=== PATIENT | male | born 1945 | race Caucasian/White ===

== ENCOUNTER 2019-11-24 08:52 | Inpatient (IN) | payer MEDICARE, BC, SELFPAY ==
[2019-11-24] VITALS (24 sets, daily range): BP systolic 77–123; BP diastolic 34–86; PULSE 60–85; RESP 18–32; TEMP 37.2–37.9; O2SAT 72–100; BMI 33.0
--- NOTE | 2019-11-24 08:54 | ED_ITS ---
HPI - Weakness General: Chief complaint: Weakness Stated complaint: WEAKNESS Time Seen by Provider: 11/24/19 08:54 History of Present Illness: HPI Narrative: 74 yo resents emergency room on transfer from [facility] beds at the [facility]. Dr. Holt had agreed to accept him. On arrival here he is hypotensive and lethargic. When I talked to him he states he began to have a cough productive cough about 9 days ago with no fever he subsequently stated pressure over this and that was about 5 days ago was started on Zithromax and guaifenesin. He did have one ER visit after that and then another ER visit overnight at [facility] which he was transferred here. Patient reports he has been Kovic tested and was negative. 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 He had not received much for fluids and he was hypotensive when he arrived here. Patient is somewhat lethargic difficult to get history from. MD Complaint: generalized weakness Onset (ago): day(s) (9) Duration: constant Location: generalized Migration: none Severity: severe Relieving factors: none Exacerbating factors: none Context: history of similar Associated symptoms: Reports no associated symptoms and nausea; Denies chest pain, chills, melena, dysuria, fever(s) or vomiting Review of Systems Const: Denies: fever(s), chills, body aches, change in appetite, fatigue or malaise ENMT: Denies: throat pain, ear or mastoid pain, nasal discharge or nasal congestion Card: Denies: chest pain, edema, dyspnea on exertion or orthopnea Resp: Reports: dyspnea and non-productive cough; Denies: productive cough GI: Reports: abdominal pain and nausea; Denies: vomiting, hematemesis, coffee ground emesis, diarrhea, constipation, bloating, hematochezia or melena : Denies: flank pain, dysuria, urinary frequency or urinary urgency Skin/Breast: Denies: rash or pruritus PFSH ED PFSH: Medical History CAD (coronary artery disease) Chronic anticoagulation Chronic kidney disease Congestive heart failure COPD (chronic obstructive pulmonary disease) Glaucoma Vasculitis Surgical History History of heart artery stent Social History Smoking and tobacco status: never smoked Alcohol intake: never Substance/Drug Use: never Marital status: Physical Exam Const: COMMON NORMALS: no acute distress GENERAL APPEARANCE: cooperative and comfortable ORIENTATION/CONSCIOUSNESS: Yes awake Eye: COMMON NORMALS: Equal, round and reactive pupils present, EOMs intact bilaterally, conjunctivae normal and no scleral icterus CONJUNCTIVA: Yes conjunctivae normal PUPIL: Yes Equal, round and reactive pupils present Neck/C-Spine: COMMON NORMALS: full ROM, no lymphadenopathy, supple and no JVD Lymph: LYMPHATIC: no lymphadenopathy noted and no lymphedema noted Resp: COMMON NORMALS: normal respiratory effort, No retractions and No use of accessory muscles AUSCULTATION: diminished lung sounds Cardio: COMMON NORMALS: no JVD, regular rate, regular rhythm and No murmurs present (Cardio) RATE: regular rate RHYTHM: regular rhythm GI: COMMON NORMALS: Soft to palpation and No hepatosplenomegaly present AUSCULTATION: Yes normoactive bowel sounds PALPATION: Yes Soft to palpation, No Tenderness to palpation present (GI), No Guarding due to palpation present (GI) and Yes No hepatosplenomegaly present Extremity: COMMON NORMALS: normal to inspection, capillary refill normal, no clubbing, cyanosis or edema, no calf tenderness and no pedal edema Skin: COMMON NORMALS: no rashes or lesions noted GENERAL SKIN EXAM: no rashes or lesions noted Course Vital Signs: Vital signs: Vital Signs Temperature 98.9 F 11/24/19 08:58 Pulse Rate 72 11/24/19 14:22 Respiratory Rate 20 H 11/24/19 14:22 Blood Pressure 93/68 11/24/19 14:22 Pulse Oximetry 91 11/24/19 14:22 MDM - Weakness 2 Lab Data: Labs: Lab Results 11/24/19 11/24/19 11/24/19 Range/Units 09:08 09:08 09:08 WBC 4.7 (4.0-10.0) 10^3/ uL RBC 3.52 L (4.1-5.3) 10^6/u L Hgb 10.8 L (11.7-16.6) g/dL Hct 32.5 L (42.0-52.0) % MCV 92.3 (80-94) fL MCH 30.7 (28.0-34.0) pg MCHC 33.2 (30.0-36.0) g/dL RDW 15.5 H (12.1-15.1) % Plt Count 50 L (130-400) 10^3/c mm MPV 13.0 H (7.4-10.4) fL Neut % (Auto) 90.6 % Lymph % (Auto) 3.2 % Swisher % (Auto) 5.1 % Eos % (Auto) 0.0 % Baso % (Auto) 0.2 % Neut # (Auto) 4.3 (1.8-7.7) 10^3/u L Lymph # (Auto) 0.2 L (0.8-4.8) 10^3/u L Swisher # (Auto) 0.2 (0.2-0.9) 10^3/u L Eos # (Auto) 0.0 (0.0-0.8) 10^3/u L Baso # (Auto) 0.0 (0.0-0.1) 10^3/u L Nucleated RBC % (a uto) 0 % Nucleated RBCs # 0.0 /100WBC Fibrinogen (184-529) mg/dL D-Dimer (0-0.59) ug/mIFE U Specimen Type Sample Site ABG pH (7.35-7.45) ABG pCO2 (35-45) mmHg ABG pO2 (80.0-100.0) mmH g ABG HCO3 (22-26) mmol/L ABG O2 Saturation ABG Base Excess (-2.0-2.0) mmol/ L Toro Test A-a O2 Gradient (5-10) mmHg Hematocrit (42-52) % Hgb O2 Saturation (95-100) % Carboxyhemoglobin (0.4-20.1) %THgb Methemoglobin (0.4-1.5) % Total Hemoglobin (14-18) g/dL Ionized Calcium (1.1-1.4) mmol/L O2 Delivery Device O2 Liters/Min % FiO2 % Church Business Administrator ID Sodium 123 L (136-145) mmol/L Potassium 4.0 (3.5-5.1) mmol/L Chloride 87 L (98-107) mmol/L Carbon Dioxide 20 L (22-29) mmol/L Anion Gap 20.0 H (5-19) BUN 66 H (8-23) mg/dL Creatinine 5.0 H (0.7-1.2) mg/dL Glucose 168 H (65-115) mg/dL Estimat Average Gl ucose Hemoglobin A1c (4.0-6.0) % Calculated Osmolal ity 259 L (285-295) mOsm/k g Lactate (0.5-2.2) mmol/L Calcium 8.1 L (8.5-10.5) mg/dL Iron (59-158) ug/dL TIBC mcg/dl % Saturation (20-50) % Unsat Iron Binding (112-347) ug/dL Ferritin (30-400) ng/mL Total Bilirubin 0.5 (0.15-1.2) mg/dL AST 179 H (0-40) U/L ALT 83 H (0-41) U/L Alkaline Phosphata se 47 (40-130) IU/L Troponin T Baselin e 95 H (0-15) ng/L Troponin T 120 [address] [place] (0-15) ng/L Delta Troponin T (0-10) ABS# C-Reactive Protein (0.0-4.9) mg/L NT-Pro-B Natriuret Pep (0-450) pg/mL Total Protein 5.3 L (6.6-8.7) g/dL Albumin 2.9 L (3.5-5.2) g/dL Globulin 2.4 (1.3-4.6) g/dL Prostate Specific Ag (0-4) ng/mL Procalcitonin (0-0.5) ng/mL Urine Color (Yellow) Urine Appearance (CLEAR) Urine pH (5-7) Ur Specific Gravit y (1.005-1.030) Urine Protein (Negative) Urine Glucose (UA) (Normal) Urine Ketones (Negative) Urine Blood (Negative) Urine Nitrate (Negative) Urine Bilirubin (NEGATIVE) Urine Urobilinogen (Negative) mg/dL Ur Leukocyte Earlene ase (Negative) Urine RBC (0-2) /hpf Urine WBC (0-5) /hpf Ur Squamous Epith Cells (0-5) Amorphous Sediment Urine Bacteria (NONE) Serum Ketones (Negative) 11/24/19 11/24/19 11/24/19 Range/Units 09:08 09:08 09:08 WBC (4.0-10.0) 10^3/ uL RBC (4.1-5.3) 10^6/u L Hgb (11.7-16.6) g/dL Hct (42.0-52.0) % MCV (80-94) fL MCH (28.0-34.0) pg MCHC (30.0-36.0) g/dL RDW (12.1-15.1) % Plt Count (130-400) 10^3/c mm MPV (7.4-10.4) fL Neut % (Auto) % Lymph % (Auto) % Swisher % (Auto) % Eos % (Auto) % Baso % (Auto) % Neut # (Auto) (1.8-7.7) 10^3/u L Lymph # (Auto) (0.8-4.8) 10^3/u L Swisher # (Auto) (0.2-0.9) 10^3/u L Eos # (Auto) (0.0-0.8) 10^3/u L Baso # (Auto) (0.0-0.1) 10^3/u L Nucleated RBC % (a uto) % Nucleated RBCs # /100WBC Fibrinogen 378 (184-529) mg/dL D-Dimer (0-0.59) ug/mIFE U Specimen Type Sample Site ABG pH (7.35-7.45) ABG pCO2 (35-45) mmHg ABG pO2 (80.0-100.0) mmH g ABG HCO3 (22-26) mmol/L ABG O2 Saturation ABG Base Excess (-2.0-2.0) mmol/ L Toro Test A-a O2 Gradient (5-10) mmHg Hematocrit (42-52) % Hgb O2 Saturation (95-100) % Carboxyhemoglobin (0.4-20.1) %THgb Methemoglobin (0.4-1.5) % Total Hemoglobin (14-18) g/dL Ionized Calcium (1.1-1.4) mmol/L O2 Delivery Device O2 Liters/Min % FiO2 % Church Business Administrator ID Sodium (136-145) mmol/L Potassium (3.5-5.1) mmol/L Chloride (98-107) mmol/L Carbon Dioxide (22-29) mmol/L Anion Gap (5-19) BUN (8-23) mg/dL Creatinine (0.7-1.2) mg/dL Glucose (65-115) mg/dL Estimat Average Gl ucose Hemoglobin A1c (4.0-6.0) % Calculated Osmolal ity (285-295) mOsm/k g Lactate 2.5 H (0.5-2.2) mmol/L Calcium (8.5-10.5) mg/dL Iron (59-158) ug/dL TIBC mcg/dl % Saturation (20-50) % Unsat Iron Binding (112-347) ug/dL Ferritin (30-400) ng/mL Total Bilirubin (0.15-1.2) mg/dL AST (0-40) U/L ALT (0-41) U/L Alkaline Phosphata se (40-130) IU/L Troponin T Baselin e (0-15) ng/L Troponin T 120 [address] [place] (0-15) ng/L Delta Troponin T (0-10) ABS# C-Reactive Protein (0.0-4.9) mg/L NT-Pro-B Natriuret Pep (0-450) pg/mL Total Protein (6.6-8.7) g/dL Albumin (3.5-5.2) g/dL Globulin (1.3-4.6) g/dL Prostate Specific Ag (0-4) ng/mL Procalcitonin (0-0.5) ng/mL Urine Color (Yellow) Urine Appearance (CLEAR) Urine pH (5-7) Ur Specific Gravit y (1.005-1.030) Urine Protein (Negative) Urine Glucose (UA) (Normal) Urine Ketones (Negative) Urine Blood (Negative) Urine Nitrate (Negative) Urine Bilirubin (NEGATIVE) Urine Urobilinogen (Negative) mg/dL Ur Leukocyte Earlene ase (Negative) Urine RBC (0-2) /hpf Urine WBC (0-5) /hpf Ur Squamous Epith Cells (0-5) Amorphous Sediment Urine Bacteria (NONE) Serum Ketones Negative (Negative) 11/24/19 11/24/19 11/24/19 Range/Units 09:08 09:08 09:08 WBC (4.0-10.0) 10^3/ uL RBC (4.1-5.3) 10^6/u L Hgb (11.7-16.6) g/dL Hct (42.0-52.0) % MCV (80-94) fL MCH (28.0-34.0) pg MCHC (30.0-36.0) g/dL RDW (12.1-15.1) % Plt Count (130-400) 10^3/c mm MPV (7.4-10.4) fL Neut % (Auto) % Lymph % (Auto) % Swisher % (Auto) % Eos % (Auto) % Baso % (Auto) % Neut # (Auto) (1.8-7.7) 10^3/u L Lymph # (Auto) (0.8-4.8) 10^3/u L Swisher # (Auto) (0.2-0.9) 10^3/u L Eos # (Auto) (0.0-0.8) 10^3/u L Baso # (Auto) (0.0-0.1) 10^3/u L Nucleated RBC % (a uto) % Nucleated RBCs # /100WBC Fibrinogen (184-529) mg/dL D-Dimer 3.94 H (0-0.59) ug/mIFE U Specimen Type Sample Site ABG pH (7.35-7.45) ABG pCO2 (35-45) mmHg ABG pO2 (80.0-100.0) mmH g ABG HCO3 (22-26) mmol/L ABG O2 Saturation ABG Base Excess (-2.0-2.0) mmol/ L Toro Test A-a O2 Gradient (5-10) mmHg Hematocrit (42-52) % Hgb O2 Saturation (95-100) % Carboxyhemoglobin (0.4-20.1) %THgb Methemoglobin (0.4-1.5) % Total Hemoglobin (14-18) g/dL Ionized Calcium (1.1-1.4) mmol/L O2 Delivery Device O2 Liters/Min % FiO2 % Church Business Administrator ID Sodium (136-145) mmol/L Potassium (3.5-5.1) mmol/L Chloride (98-107) mmol/L Carbon Dioxide (22-29) mmol/L Anion Gap (5-19) BUN (8-23) mg/dL Creatinine (0.7-1.2) mg/dL Glucose (65-115) mg/dL Estimat Average Gl ucose Hemoglobin A1c (4.0-6.0) % Calculated Osmolal ity (285-295) mOsm/k g Lactate (0.5-2.2) mmol/L Calcium (8.5-10.5) mg/dL Iron 39 L (59-158) ug/dL TIBC 207 mcg/dl % Saturation 18.8 L (20-50) % Unsat Iron Binding 168 (112-347) ug/dL Ferritin > [address]304 H (30-400) ng/mL Total Bilirubin (0.15-1.2) mg/dL AST (0-40) U/L ALT (0-41) U/L Alkaline Phosphata se (40-130) IU/L Troponin T Baselin e (0-15) ng/L Troponin T 120 Min [place] (0-15) ng/L Delta Troponin T (0-10) ABS# C-Reactive Protein 311.4 H (0.0-4.9) mg/L NT-Pro-B Natriuret Pep (0-450) pg/mL Total Protein (6.6-8.7) g/dL Albumin (3.5-5.2) g/dL Globulin (1.3-4.6) g/dL Prostate Specific Ag 8.330 H (0-4) ng/mL Procalcitonin 34.14 H (0-0.5) ng/mL Urine Color (Yellow) Urine Appearance (CLEAR) Urine pH (5-7) Ur Specific Gravit y (1.005-1.030) Urine Protein (Negative) Urine Glucose (UA) (Normal) Urine Ketones (Negative) Urine Blood (Negative) Urine Nitrate (Negative) Urine Bilirubin (NEGATIVE) Urine Urobilinogen (Negative) mg/dL Ur Leukocyte Earlene ase (Negative) Urine RBC (0-2) /hpf Urine WBC (0-5) /hpf Ur Squamous Epith Cells (0-5) Amorphous Sediment Urine Bacteria (NONE) Serum Ketones (Negative) 11/24/19 11/24/19 11/24/19 Range/Units 09:08 09:08 09:29 WBC (4.0-10.0) 10^3/ uL RBC (4.1-5.3) 10^6/u L Hgb (11.7-16.6) g/dL Hct (42.0-52.0) % MCV (80-94) fL MCH (28.0-34.0) pg MCHC (30.0-36.0) g/dL RDW (12.1-15.1) % Plt Count (130-400) 10^3/c mm MPV (7.4-10.4) fL Neut % (Auto) % Lymph % (Auto) % Swisher % (Auto) % Eos % (Auto) % Baso % (Auto) % Neut # (Auto) (1.8-7.7) 10^3/u L Lymph # (Auto) (0.8-4.8) 10^3/u L Swisher # (Auto) (0.2-0.9) 10^3/u L Eos # (Auto) (0.0-0.8) 10^3/u L Baso # (Auto) (0.0-0.1) 10^3/u L Nucleated RBC % (a uto) % Nucleated RBCs # /100WBC Fibrinogen (184-529) mg/dL D-Dimer (0-0.59) ug/mIFE U Specimen Type Arterial Sample Site Radial, left ABG pH 7.45 (7.35-7.45) ABG pCO2 28.2 L (35-45) mmHg ABG pO2 80.7 (80.0-100.0) mmH g ABG HCO3 19.4 L (22-26) mmol/L ABG O2 Saturation 97.1 ABG Base Excess -3.7 L (-2.0-2.0) mmol/ L Toro Test Pos A-a O2 Gradient 79.6 H (5-10) mmHg Hematocrit 32.4 L (42-52) % Hgb O2 Saturation 95.1 (95-100) % Carboxyhemoglobin 0.9 (0.4-20.1) %THgb Methemoglobin 1.1 (0.4-1.5) % Total Hemoglobin 10.6 L (14-18) g/dL Ionized Calcium 1.1 (1.1-1.4) mmol/L O2 Delivery Device Nc O2 Liters/Min 2.0 % FiO2 28.0 % Church Business Administrator ID ed Sodium 125.0 L (136-145) mmol/L Potassium 3.7 (3.5-5.1) mmol/L Chloride (98-107) mmol/L Carbon Dioxide (22-29) mmol/L Anion Gap (5-19) BUN (8-23) mg/dL Creatinine (0.7-1.2) mg/dL Glucose 155.0 H (65-115) mg/dL Estimat Average Gl ucose 169 Hemoglobin A1c 7.5 H (4.0-6.0) % Calculated Osmolal ity (285-295) mOsm/k g Lactate (0.5-2.2) mmol/L Calcium (8.5-10.5) mg/dL Iron (59-158) ug/dL TIBC mcg/dl % Saturation (20-50) % Unsat Iron Binding (112-347) ug/dL Ferritin (30-400) ng/mL Total Bilirubin (0.15-1.2) mg/dL AST (0-40) U/L ALT (0-41) U/L Alkaline Phosphata se (40-130) IU/L Troponin T Baselin e (0-15) ng/L Troponin T 120 [address] [place] (0-15) ng/L Delta Troponin T (0-10) ABS# C-Reactive Protein (0.0-4.9) mg/L NT-Pro-B Natriuret Pep 2931 H (0-450) pg/mL Total Protein (6.6-8.7) g/dL Albumin (3.5-5.2) g/dL Globulin (1.3-4.6) g/dL Prostate Specific Ag (0-4) ng/mL Procalcitonin (0-0.5) ng/mL Urine Color (Yellow) Urine Appearance (CLEAR) Urine pH (5-7) Ur Specific Gravit y (1.005-1.030) Urine Protein (Negative) Urine Glucose (UA) (Normal) Urine Ketones (Negative) Urine Blood (Negative) Urine Nitrate (Negative) Urine Bilirubin (NEGATIVE) Urine Urobilinogen (Negative) mg/dL Ur Leukocyte Earlene ase (Negative) Urine RBC (0-2) /hpf Urine WBC (0-5) /hpf Ur Squamous Epith Cells (0-5) Amorphous Sediment Urine Bacteria (NONE) Serum Ketones (Negative) 11/24/19 11/24/19 Range/Units 09:55 11:09 WBC (4.0-10.0) 10^3/ uL RBC (4.1-5.3) 10^6/u L Hgb (11.7-16.6) g/dL Hct (42.0-52.0) % MCV (80-94) fL MCH (28.0-34.0) pg MCHC (30.0-36.0) g/dL RDW (12.1-15.1) % Plt Count (130-400) 10^3/c mm MPV (7.4-10.4) fL Neut % (Auto) % Lymph % (Auto) % Swisher % (Auto) % Eos % (Auto) % Baso % (Auto) % Neut # (Auto) (1.8-7.7) 10^3/u L Lymph # (Auto) (0.8-4.8) 10^3/u L Swisher # (Auto) (0.2-0.9) 10^3/u L Eos # (Auto) (0.0-0.8) 10^3/u L Baso # (Auto) (0.0-0.1) 10^3/u L Nucleated RBC % (a uto) % Nucleated RBCs # /100WBC Fibrinogen (184-529) mg/dL D-Dimer (0-0.59) ug/mIFE U Specimen Type Sample Site ABG pH (7.35-7.45) ABG pCO2 (35-45) mmHg ABG pO2 (80.0-100.0) mmH g ABG HCO3 (22-26) mmol/L ABG O2 Saturation ABG Base Excess (-2.0-2.0) mmol/ L Toro Test A-a O2 Gradient (5-10) mmHg Hematocrit (42-52) % Hgb O2 Saturation (95-100) % Carboxyhemoglobin (0.4-20.1) %THgb Methemoglobin (0.4-1.5) % Total Hemoglobin (14-18) g/dL Ionized Calcium (1.1-1.4) mmol/L O2 Delivery Device O2 Liters/Min % FiO2 % Church Business Administrator ID Sodium (136-145) mmol/L Potassium (3.5-5.1) mmol/L Chloride (98-107) mmol/L Carbon Dioxide (22-29) mmol/L Anion Gap (5-19) BUN (8-23) mg/dL Creatinine (0.7-1.2) mg/dL Glucose (65-115) mg/dL Estimat Average Gl ucose Hemoglobin A1c (4.0-6.0) % Calculated Osmolal ity (285-295) mOsm/k g Lactate (0.5-2.2) mmol/L Calcium (8.5-10.5) mg/dL Iron (59-158) ug/dL TIBC mcg/dl % Saturation (20-50) % Unsat Iron Binding (112-347) ug/dL Ferritin (30-400) ng/mL Total Bilirubin (0.15-1.2) mg/dL AST (0-40) U/L ALT (0-41) U/L Alkaline Phosphata se (40-130) IU/L Troponin T Baselin e (0-15) ng/L Troponin T 120 [address] [place] 93.25 H (0-15) ng/L Delta Troponin T -1.75 L (0-10) ABS# C-Reactive Protein (0.0-4.9) mg/L NT-Pro-B Natriuret Pep (0-450) pg/mL Total Protein (6.6-8.7) g/dL Albumin (3.5-5.2) g/dL Globulin (1.3-4.6) g/dL Prostate Specific Ag (0-4) ng/mL Procalcitonin (0-0.5) ng/mL Urine Color Yellow (Yellow) Urine Appearance Cloudy (CLEAR) Urine pH 5.0 (5-7) Ur Specific Gravit y 1.010 (1.005-1.030) Urine Protein 1+ H (Negative) Urine Glucose (UA) Norm (Normal) Urine Ketones Negative (Negative) Urine Blood 3+ H (Negative) Urine Nitrate Negative (Negative) Urine Bilirubin Neg (NEGATIVE) Urine Urobilinogen Norm (Negative) mg/dL Ur Leukocyte Earlene ase Negative (Negative) Urine RBC 15-25 H (0-2) /hpf Urine WBC None (0-5) /hpf Ur Squamous Epith Cells 0-4 H (0-5) Amorphous Sediment Not Reportable Urine Bacteria 3+ H (NONE) Serum Ketones (Negative) Discharge Plan Discharge Patient Disposition: Admitted As Inpatient Admit Provider: Louann Kauffman Clinical Impression: Acute kidney injury, Chronic kidney disease, CAD (coronary artery disease), Chronic anticoagulation, Congestive heart failure, COPD (chronic obstructive pulmonary disease), Vasculitis Condition: Stable Interventions: ED Charges Last Done: 11/24/19 09:06 Coding Level of Care Code ED [place]iler for Nury Linares
--- NOTE | 2019-11-24 08:55 | XRR_ITS ---
PROCEDURE INFORMATION: Exam: XR Chest, 1 View Exam date and time: 11/24/2019 10:19 AM Age: 74 years old Clinical indication: Cough and dyspnea; Patient HX: Weakness; Additional info: Dyspnea/cough. Covid precautions TECHNIQUE: Imaging protocol: XR of the chest Views: 1 view. COMPARISON: No relevant prior studies available. FINDINGS: Lungs: Trace left basilar atelectasis or scar. No consolidation. Pleural space: Unremarkable. No pleural effusion. No pneumothorax. Heart/Mediastinum: Unremarkable. No cardiomegaly. Bones/joints: No acute findings. XR/XR chest 1V portable [id number] IMPRESSION: No acute findings.
--- NOTE | 2019-11-24 08:56 | ECG_ITS ---
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 Measurements Intervals [place] Rate: 62 P: 26 ME: 155 QRS: 10 QRSD: 105 T: 38 QT: 389 QTc: 396 Interpretive Statements SINUS RHYTHM Compared to ECG 11/24/2019 09:22:35 No significant changes Electronically Signed On 11-24-2019 17:44:33 CDT by Alexander Ramirez M.D. [id number]
--- NOTE | 2019-11-24 09:07 | US_ITS ---
WS: [id number] ULTRASOUND RENAL TECHNIQUE: Ultrasound examination of both kidneys. CLINICAL INFORMATION: renal failure COMPARISON: None. FINDINGS: RIGHT: Right kidney is normal in size and appearance. Echogenicity: Normal. Cortical thickness: 1.3 cm; Normal. Hydronephrosis: None. Perinephric fluid: None. Right kidney measures: 9.6 cm x 5.8 cm x 6.0 cm. LEFT: Left kidney is normal in size and appearance. Echogenicity: Normal. Cortical thickness: 1.2 cm; Normal. Hydronephrosis: None. Perinephric fluid: None. Left kidney measures: 11.2 cm x 4.5 cm x 6.4 cm. Normal visualized aorta. US/US renal BI with bladder IMPRESSION: Normal renal ultrasound
[2019-11-24] MEDS: sodium chloride 0.9% 1,000 ML 999 ML IV (09:23)
[2019-11-24 09:25] LABS: Basophils % 0.2 %; Hematocrit 32.5 % (42.0-52.0); Hemoglobin 10.8 g/dL (11.7-16.6); Lymphocytes # 0.2 10^3/uL (0.8-4.8); Lymphocytes % 3.2 %; Mean Corpuscular HGB Conc 33.2 g/dL (30.0-36.0); Mean Corpuscular Hemoglobin 30.7 pg (28.0-34.0); Mean Corpuscular Volume 92.3 fL (80-94); Monocytes # 0.2 10^3/uL (0.2-0.9); Monocytes % 5.1 %; Neutrophils # 4.3 10^3/uL (1.8-7.7); Neutrophils % 90.6 %; Nucleated Red Blood Cells % 0 %; Platelet Count 50 10^3/cmm (130-400); Red Blood Count 3.52 10^6/uL (4.1-5.3); Red Cell Distribution Width 15.5 % (12.1-15.1); White Blood Count 4.7 10^3/uL (4.0-10.0)
--- NOTE | 2019-11-24 09:25 | NM_ITS ---
WS: [id number] NUCLEAR MEDICINE LUNG PERFUSION ONLY CLINICAL INFORMATION: elevated d-dimer, hypoxia TECHNIQUE: Ventilation/perfusion lung scan with 5.3 mCi technetium 99m DTPA. COMPARISON: Radiographs March 26, 2020 FINDINGS: Perfusion only imaging postadministration 5.3 mCi technetium 9 mm DTPA. Radiograph demonstrates moder ate chronic emphysematous changes. No acute pulmonary infiltrates. Cardiomegaly. Nuclear medicine perfusion images demonstrates symmetric bilateral perfusion. No large lobar or perip heral segmental perfusion defects to indicate pulmonary embolus. OR/OR pul perfusion [id number] IMPRESSION: 1. Low probability for pulmonary embolus.
--- NOTE | 2019-11-24 09:25 | USCV_ITS ---
Jeff Pereyra Age: 74 Gender: M : 1945 Exam Date: 11/24/2019 09:24 Ordering Phys: Jayce Sherman DO Technologist: Lena Francois Exam Location: [facility]_ Indication: SWELLING HISTORY: Lower extremity swelling. PROCEDURES: Venous duplex imaging was performed in bilateral lower extremities. The following venous structures were evaluated: common femoral vein, profunda vein, proximal portion of the greater saphenous vein, superficial femoral vein, and the popliteal vein. In addition, the posterior tibial and peroneal trunk were evaluated. Serial compression, augmentation maneuvers, and spectral Doppler flow evaluation were performed. FINDINGS: Normal 2-D Doppler and augmentation and compressibility throughout the lower extremity venous structures. Additional imaging through the proximal calf veins also reveals no thrombus. Limited evaluation of the greater saphenous vein is patent with no thrombus.. CONCLUSIONS No evidence of right lower extremity DVT. No evidence of left lower extremity DVT. Humble Campo MD (Electronically Signed) Final Date: 24 November 2019 14:53 S
[2019-11-24 09:32] LABS: Alanine Aminotransferase 83 U/L (0-41); Albumin Level 2.9 g/dL (3.5-5.2); Alkaline Phosphatase 47 IU/L (40-130); Aspartate Amino Transferase 179 U/L (0-40); Blood Urea Nitrogen 66 mg/dL (8-23); Calcium 8.1 mg/dL (8.5-10.5); Carbon Dioxide 20 mmol/L (22-29); Chloride 87 mmol/L (98-107); Globulin 2.4 g/dL (1.3-4.6); Glucose 168 mg/dL (65-115); Osmolality Calculated 259 mOsm/kg (285-295); Sodium 123 mmol/L (136-145); Total Bilirubin 0.5 mg/dL (0.15-1.2); Total Protein 5.3 g/dL (6.6-8.7)
[2019-11-24 09:34] LABS: Lactate (Lactic Acid level) 2.5 mmol/L (0.5-2.2)
[2019-11-24 09:35] LABS: Troponin(5th) Baseline 95 ng/L (0-15)
[2019-11-24 09:40] LABS: ABG PCO2 28.2 mmHg (35-45); ABG PH Result 7.45 (7.35-7.45); Alveolar-Arterial Oxygen Gradi 79.6 mmHg (5-10); Arterial Blood Gas Hematocrit 32.4 % (42-52); Base Excess ABG -3.7 mmol/L (-2.0-2.0); Blood Gas Allen Test Pos; Blood Gas Sample Site Radial, left; Blood Gas Sample Type Arterial; Carboxyhemoglobin 0.9 %THgb (0.4-20.1); HCO3 ABG 19.4 mmol/L (22-26); HGB O2 Sat 95.1 % (95-100); Ionized Calcium Level - ABG 1.1 mmol/L (1.1-1.4); Methemoglobin 1.1 % (0.4-1.5); Oxygen Device NC; Oxygen Saturation ABG 97.1; PO2 ABG 80.7 mmHg (80.0-100.0); Potassium Level - ABG 3.7 mmol/L (3.5-5.0); Total Hemoglobin 10.6 g/dL (14-18)
[2019-11-24 09:47] LABS: Ketone (Acetest) Serum Negative (Negative)
--- NOTE | 2019-11-24 10:07 | PM.HP ---
Providers/Chief Complaint Admitting Physician: Louann Kauffman DO Primary Care Provider: Dr. Mena Chief Complaint: WEAKNESS History of Present Illness Jeff Pereyra is a 74 year old male with a past medical history of coronary artery disease, CHF, COPD on chronic anticoagulation as well as history of vasculitis with chronic kidney disease that presented via ER to ER transfer. Patient was transferred to our facility for nephrology services, verbalized reported that time was that patient was stable with vital signs stable. Patient arrived hypotensive and required fluid resuscitation. He reports that he has had an increased cough over the past 1 week. He states that he is on chronic prednisone and states that he also takes some sort of chemotherapy due to his vasculitis. He is followed by nephrology at [facility] along with cardiology due to history of coronary artery disease and CHF. Patient uncertain if he has had any fevers at home, denies any exposure to anyone under investigation are positive for COVID-19. Patient reports increasing shortness of breath and cough. Stated that he is on chronic blood thinner, uncertain why but thinks it is due to history of blood clots in his legs. Patient was seen and evaluated in the emergency department admitted for acute renal failure and septic shock. Was noted to have urine retention and Edwards catheter was inserted with immediate return of 500 mL of urine Review of Systems Const: Reports: fatigue and malaise; Denies: fever(s) or chills Eyes: Denies: change in vision ENMT: Denies: nasal congestion Card: Reports: edema; Denies: chest pain or palpitations Resp: Reports: dyspnea and productive cough; Denies: hemoptysis GI: Denies: abdominal pain, nausea, vomiting, diarrhea, constipation, hematochezia or melena : Reports: other (Chronic difficulty with starting and stopping stream); Denies: dysuria or hematuria Musc: Denies: extremity pain or muscle cramps Skin/Breast: Denies: rash or new lesions Neuro: Denies: headache(s) or dizziness Psych: Denies: anxiety or depression Endo: Denies: polyuria or hot flashes Ashok/Lymph: Denies: easy bruising or easy bleeding Medications/Allergies Home Medications Medication Instructions Recorded Confirmed Last Taken Type aspirin 81 mg PO DAILY 11/24/19 11/24/19 Unknown History atorvastatin 10 mg PO DAILY 11/24/19 11/24/19 Unknown History azithromycin See Rx Instructions .ROUTE .COMPLEX 11/24/19 11/24/19 Unknown History brimonidine 1 drp OPHTHALMIC (EYE) BID 11/24/19 11/24/19 Unknown History bumetanide 2 mg PO DAILY 11/24/19 11/24/19 Unknown History calcitriol 0.25 mcg PO BID 11/24/19 11/24/19 Unknown History carbamazepine 200 mg PO DAILY 11/24/19 11/24/19 Unknown History dabigatran etexilate [Pradaxa] 75 mg PO DAILY 11/24/19 11/24/19 Unknown History guaifenesin [Mucinex] 600 mg PO BID 11/24/19 11/24/19 Unknown History insulin aspart U-100 [Novolog See Rx Instructions .ROUTE .COMPLEX 11/24/19 11/24/19 Unknown History Flexpen U-100 Insulin] isosorbide mononitrate 30 mg PO DAILY 11/24/19 11/24/19 Unknown History latanoprost 1 drp OPHTHALMIC (EYE) BID 11/24/19 11/24/19 Unknown History metolazone 5 mg PO DAILY 11/24/19 11/24/19 Unknown History midodrine 5 mg PO Q8H 11/24/19 11/24/19 Unknown History potassium chloride 10 meq PO DAILY 11/24/19 11/24/19 Unknown History prednisone See Rx Instructions .ROUTE .COMPLEX 11/24/19 11/24/19 Unknown History sulfamethoxazole-trimethoprim See Rx Instructions .ROUTE .COMPLEX 11/24/19 11/24/19 Unknown History tamsulosin 0.4 mg PO DAILY 11/24/19 11/24/19 Unknown History Allergies Allergy/AdvReac Type Severity Reaction Status Date / Time Penicillins Allergy Unknown Verified 11/24/19 09:04 PFSH Acute PFSH: Medical History (Updated 11/24/19 @ 15:39 by Louann Kauffman DO) CAD (coronary artery disease) Chronic anticoagulation Chronic kidney disease Congestive heart failure COPD (chronic obstructive pulmonary disease) Diabetes mellitus type 2, insulin dependent Glaucoma History of DVT (deep vein thrombosis) Pulmonary hypertension Secondary hyperparathyroidism (of renal origin) Vasculitis ANCA+ vasculitis Surgical History (Updated 11/24/19 @ 15:39 by Louann Kauffman DO) History of arthroscopy of left knee History of arthroscopy of right knee History of cataract surgery History of detached retina repair History of ear surgery History of heart artery stent 02/02/15 NAT RCA, LVEF at that time 65% Status post biopsy of kidney Social History Smoking and tobacco status: never smoked Alcohol intake: never Substance/Drug Use: never [facility] Information: Unable to obtain family history Vitals/I&O/Wt Last Vital Signs Temp 98.9 F 11/24/19 08:58 Pulse 67 11/24/19 08:58 Resp 28 H 11/24/19 08:58 BP 77/34 11/24/19 08:58 Pulse Ox 96 11/24/19 08:58 Weight last 48 hrs Weight 113.398 kg Physical Exam Const: COMMON NORMALS: patient oriented x3 and alert GENERAL APPEARANCE: cooperative ORIENTATION/CONSCIOUSNESS: Yes awake, Yes oriented to person, Yes oriented to place and Yes oriented to time HENMT: COMMON NORMALS: normocephalic and atraumatic HEAD & SCALP: normocephalic and atraumatic Eye: COMMON NORMALS: Equal, round and reactive pupils present PUPIL: Yes Equal, round and reactive pupils present Neck/C-Spine: COMMON NORMALS: supple GENERAL: Yes normal visual inspection Resp: COMMON NORMALS: normal respiratory effort and clear to auscultation bilaterally EFFORT & INSPECTION: Yes able to speak in complete sentences AUSCULTATION: clear to auscultation bilaterally, no rhonchi and no wheezes Cardio: COMMON NORMALS: regular rate, regular rhythm and No murmurs present (Cardio) RATE: regular rate RHYTHM: regular rhythm GI: COMMON NORMALS: Soft to palpation and non-tender INSPECTION: No abdominal distension AUSCULTATION: Yes normoactive bowel sounds PALPATION: Yes Soft to palpation : OTHER: Only catheter in place with dark-colored urine and sediment Extremity: COMMON NORMALS: no calf tenderness OTHER: 2+ pitting edema in the lower extremities bilaterally Neuro: COMMON NORMALS: patient oriented x3, CN's II-XII intact bilaterally, moves all extremities and no focal motor deficits SENSORIUM/ORIENTATION: Yes alert, Yes oriented to person, Yes oriented to place and Yes oriented to time SPEECH: speech normal Psych: COMMON NORMALS: mental status grossly normal and cooperative Skin: OTHER: Chronic venous stasis changes over the distal lower extremities bilaterally Data : 11/24/19 09:08 11/24/19 15:01 Micro: Microbiology 11/24/19 09:08 Blood Culture - Preliminary Blood SPECIMEN COLLECTED 11/24/19 09:20 Blood Culture - Preliminary Blood SPECIMEN COLLECTED A&P Assessment and plan (1) Acute kidney injury: Believed to be multifactorial Patient has recently been started on Bactrim, unable to obtain indication for this medication but is recently been started on it every other day Patient does have a his history of vasculitis and reports being on chronic steroids and chemotherapy obtaining records from outpatient nephrology at [facility] in [facility]. After further discussion with patient's patient received Rituxan infusion on 10/09/2019. 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 Luevano Patient also had obstructive process and once Edwards catheter was placed had 500 mL of urine output. We will continue on home Flomax We will consult nephrology, appreciate consultation and assistance in patient's care. No indication for dialysis at this time but will continue close monitoring of renal function and electrolytes. Question of ANCA vasculitis versus ATN. May require renal biopsy versus plasmaphoresis. Consider outside transfer if no improvement Status: Acute (2) Chronic kidney disease: Reported history of vasculitis with chronic kidney disease, followed by nephrology at outside facility. Record request sent Nephrology consulted Status: Acute (3) Vasculitis: Patient reports being on chronic steroids due to vasculitis with Rituxan infusion on October 08 Obtaining records from outside facility Nephrology consult appreciated, will follow up with recommendations Discussed with factory lay out engineer, Dr. Jones for consultation Status: Acute (4) COPD (chronic obstructive pulmonary disease): Without acute exacerbation, no appreciable wheezing Respiratory therapy to assess and treat, oxygen per protocol Status: Acute (5) Congestive heart failure: Patient intravascularly depleted at time in the ER along with hypotensive therefore given aggressive IV fluids. We will continue to monitor closely at this time. Patient is on metolazone 5 mg daily, holding at this time, does not appear to be on any beta-marc, no RITESH inhibitor due to underlying renal function, is also on Bumex 2 mg twice daily. Holding at this time due to renal function. Will further evaluate with echocardiogram, unspecified CHF that is chronic in nature Status: Acute (6) Chronic anticoagulation: Patient is on Pradaxa twice daily, he reports this may be related to blood clots, he is uncertain Holding anticoagulation at this time due to thrombocytopenia and anemia Status: Acute (7) CAD (coronary artery disease): Stent placement in 2015 at [facility] Hold Imdur due to hypotension, not on beta-marc, holding statin due to concern for transaminitis Status: Acute Additional A&P Information Sepsis: Patient currently hypotensive with what appears to be chronic hypotension but with concern for worsening respiratory symptoms may do developing septic shock due to developing pneumonia. On Midodrine 5 mg 3 times a day at home, will continue and monitor BP closely in ICU with addition of pressors if indicated. Patient is immunocompromised due to being on Rituxan infusions as well as chronic steroids. Will cover with broad-spectrum antibiotics with vancomycin, Primaxin, Levaquin and Bactrim. Will check Legionella urine antigen, will check CT scan of the chest due to patient's cough over the past 1 week, without contrast due to acute kidney injury. May require bronchoscopy pending cultures Elevated D-Dimer with dyspnea and reported history of DVT: VQ scan ordered for further evaluation and treatment plan able to perform CT PE protocol due to renal function. Caution with anticoagulation due to patient having thrombocytopenia and anemia. Reported history of DVT chronically on Pradaxa, lower extremity venous duplex negative for acute DVT Chronic normocytic anemia: Likely secondary to chronic disease, will check further iron studies Increasing cough and sputum production, patient has been tested for COVID-19 and remains on droplet and isolation precautions, concern for developing pneumonia in the RLL, WBC within normal limitis. Will check procalcitonin. Patient had recent respiratory viral panel positive for rhinovirus/enterovirus performed at an outside facility on 11/22/2019. Had prior COVID-19 testing that was negative. Will further discuss with pulmonology due to concern for history of vasculitis with the possibility of ANCA vasculitis Hyponatremia: Patient initially intravascularly volume depleted, given IV fluids in the emergency department, will recheck labs Diabetes mellitus type 2: We will check hemoglobin A1c, place on sliding scale insulin Transaminitis: No tenderness in the right upper quadrant, RUQ US ordered for further evaluation Hypoalbuminemia Thrombocytopenia: appears to be chronic based on prior labs, will continue close monitoring Hematuria with acute on chronic kidney injury: Renal ultrasound ordered and pending, will also check PSA Patient is on chronic steroids with immunocompromise status due to vasculitis: We will continue on steroids at this time but will give it 60 mg and consider further stress dosing if indicated Hyperlipidemia: Holding statin due to transaminitis DVT ppx: SCDs, no further pharmacologic prophylaxis at this time until return or further labs and due to thrombocytopenia and anemia Diet: NPO Code status: Full Code Attestations Medical Necessity Statement*: Patient requires hospitalization due to concern for sepsis with septic shock immunocompromise state and acute on chronic kidney injury with concern for underlying vasculitis. Expected stay greater than 2 midnights. 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
[2019-11-24 10:14] LABS: Fibrinogen 378 mg/dL (184-529)
[2019-11-24 10:20] LABS: C Reactive Protein 311.4 mg/L (0.0-4.9)
[2019-11-24 10:47] LABS: Add Urine Microscopic? YES; Bilirubin Urine Neg (NEGATIVE); Blood Urine 3+ (Negative); Glucose Urine UA Norm (Normal); Ketones Urine Negative (Negative); Leukocyte Esterase Urine Negative (Negative); Nitrate Urine Negative (Negative); Protein Urine 1+ (Negative); Urine Appearance Cloudy (CLEAR); Urine Color Yellow (Yellow); Urobilinogen Urine Norm (Negative)
[2019-11-24 10:48] LABS: D Dimer 3.94 ug/mIFEU (0-0.59)
--- NOTE | 2019-11-24 10:56 | ECG_ITS ---
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 Measurements Intervals [place] Rate: 65 P: 19 SC: 155 QRS: 20 QRSD: 102 T: 29 QT: 374 QTc: 389 Interpretive Statements SINUS RHYTHM Compared to ECG 08/15/2016 06:45:51 Sinus bradycardia no longer present Intraventricular conduction delay no longer present Electronically Signed On 11-24-2019 17:46:51 CDT by Alexander Ramirez M.D. [id number]
[2019-11-24 11:14] LABS: Add Urine Culture? Yes; Bacteria Urine 3+; RBC Urine 15-25 /hpf (0-2); Squamous Epithelial Cell Urine 0-4 (0-5)
--- NOTE | 2019-11-24 11:34 | PC.NURSE ---
EKG done at 1130 and shown to ER doctor and hospitalist
[2019-11-24 11:48] LABS: Troponin 5 2HR 93.25 ng/L (0-15)
[2019-11-24 11:49] LABS: Procalcitonin 34.14 ng/mL (0-0.5)
[2019-11-24 11:56] LABS: Estmated Average Glucose 169; Hemoglobin A1C 7.5 % (4.0-6.0)
[2019-11-24 12:13] LABS: Troponin 5 2HR Delta -1.75 ABS# (0-10)
[2019-11-24 12:26] LABS: NT Pro B Type Natriuretic Pept 2931 pg/mL (0-450)
[2019-11-24 12:28] LABS: Iron 39 ug/dL (59-158); Percent Saturation 18.8 % (20-50); Total Iron Binding Capacity 207 mcg/dl; Unsaturated Iron Binding 168 ug/dL (112-347)
[2019-11-24 12:52] LABS: Lactic Sepsis W/Reflex 1.7 mmol/L (0.5-2.2)
[2019-11-24 12:54] LABS: Alanine Aminotransferase 87 U/L (0-41); Albumin Level 2.9 g/dL (3.5-5.2); Alkaline Phosphatase 45 IU/L (40-130); Anion Gap 19.1 (5-19); Aspartate Amino Transferase 200 U/L (0-40); Blood Urea Nitrogen 79 mg/dL (8-23); Calcium 7.7 mg/dL (8.5-10.5); Carbon Dioxide 21 mmol/L (22-29); Chloride 90 mmol/L (98-107); Glucose 145 mg/dL (65-115); Osmolality Calculated 264 mOsm/kg (285-295); Potassium 4.1 mmol/L (3.5-5.1); Sodium 126 mmol/L (136-145); Total Bilirubin 0.5 mg/dL (0.15-1.2); Total Protein 4.9 g/dL (6.6-8.7)
--- NOTE | 2019-11-24 13:50 | P.CONIM_ITS ---
Providers/Reason For Consult Consulting Physican/Specialty*: mckenzie adan md- telenephrology Reason for Consult*: YIMI on CKD stage 4 Attending Physician: Louann Kauffman DO History of Present Illness History of Present Illness Jeff Pereyra is a 74 year old male h/o CAD, CHF, COPD. Pt was diagnosed w/ ANCA vasculitis in 2015 by clinical story and blood test, could not get a renal bx as he was on plavix and had a recent cardiac stent. he improved w/ steroids and cytoxan. he relapsed in 2017 and had a renal bx revelaing ANCA vasculitis and again received pred and cytoxan. he improved to a baseline cr under 2. this September 2019 he developed inc ANCA and was treated w/ rituxan - last treated approx [address] Margot Musa at [facility] . His cr was as high as 2.9 on 10/04/19 and was 2.36 on October 11. Pt presents now w/ over a week of weakness, lethargy, poor appetite, SOB, cough. Pt was seen in a [facility] that transferred him [place] [facility] [place]. Of note, per Dr. Mehta, his PMD pts cr was 2.8 on 11/21, 4.9 earlier today- please confirm these labs. [place] [facility] [place],He had elizabeth placed in eR w/ PVR of approx 500 ml. he received 2 l of ivf. he is sob and had a VQ scan and venous doppler- per Dr. Kauffman- both are prelim negative. Pt had cxr w/ maybe a small rt infiltrate, and a normal renal us. renal called to consult Review of Systems General: Reports: 10 or more systems reviewed and unremarkable except in HPI and below Narrative: sob, weak, cough, fevers- given recent abx by his Doctor- Dr. Carlson, on chronic prednisone and bactrim, weak, no edema, no rash, difficulty urinating, sinus issues Meds/Allergies Home Medications and Allergies Home Medications Medication Instructions Recorded Confirmed Last Taken Type aspirin 81 mg PO DAILY 11/24/19 11/24/19 Unknown History atorvastatin 10 mg PO DAILY 11/24/19 11/24/19 Unknown History azithromycin See Rx Instructions .ROUTE .COMPLEX 11/24/19 11/24/19 Unknown History brimonidine 1 drp OPHTHALMIC (EYE) BID 11/24/19 11/24/19 Unknown History bumetanide 2 mg PO DAILY 11/24/19 11/24/19 Unknown History calcitriol 0.25 mcg PO BID 11/24/19 11/24/19 Unknown History carbamazepine 200 mg PO DAILY 11/24/19 11/24/19 Unknown History dabigatran etexilate [Pradaxa] 75 mg PO DAILY 11/24/19 11/24/19 Unknown History guaifenesin [Mucinex] 600 mg PO BID 11/24/19 11/24/19 Unknown History insulin aspart U-100 [Novolog See Rx Instructions .ROUTE .COMPLEX 11/24/19 Unknown History Flexpen U-100 Insulin] isosorbide mononitrate 30 mg PO DAILY 11/24/19 11/24/19 Unknown History latanoprost 1 drp OPHTHALMIC (EYE) BID 11/24/19 11/24/19 Unknown History metolazone 5 mg PO DAILY 11/24/19 11/24/19 Unknown History midodrine 5 mg PO Q8H 11/24/19 11/24/19 Unknown History potassium chloride 10 meq PO DAILY 11/24/19 11/24/19 Unknown History prednisone See Rx Instructions .ROUTE .COMPLEX 11/24/19 11/24/19 Unknown History sulfamethoxazole-trimethoprim See Rx Instructions .ROUTE .COMPLEX 11/24/19 11/24/19 Unknown History tamsulosin 0.4 mg PO DAILY 11/24/19 11/24/19 Unknown History Allergies Allergy/AdvReac Type Severity Reaction Status Date / Time Penicillins Allergy Unknown Verified 11/24/19 09:04 PFSH Acute PFSH: Medical History (Updated 11/24/19 @ 11:09 by Louann Kauffman DO) CAD (coronary artery disease) Chronic anticoagulation Chronic kidney disease Congestive heart failure COPD (chronic obstructive pulmonary disease) Glaucoma Vasculitis Surgical History (Updated 11/24/19 @ 10:55 by Louann Kauffman DO) History of heart artery stent Social History (Updated 11/24/19 @ 10:55 by Louann Kauffman DO) Smoking and tobacco status: never smoked Alcohol intake: never Substance/Drug Use: never Marital status: Vitals/I&O/Wt Last Vital Signs Temp 98.9 F 11/24/19 08:58 Pulse 65 11/24/19 11:30 Resp 20 H 11/24/19 10:27 BP 97/45 11/24/19 11:30 Pulse Ox 100 11/24/19 10:27 Weight last 48 hrs Weight 113.398 kg Physical Exam Narrative: EXAM NARRATIVE: afebrile, hr 60's, rr 20, pulse ox 100% on nc o2, bp 77/34- 109/43, uncomfortable and SOB exam by RN wily- nc/at gen- obese man neck supple lung cta b/l heart reg, +JERRY abd soft, nt, nd, +BS ext no edema skin- no clear rash appreciated neuro- confused Urinary Catheter Management^: Elizabeth: Cath Placed During This Visit: yes Urinary Catheter Date of Insertion: 11/24/19 Urinary Catheter Time of Insertion: 09:55 Data Micro: Micro: Microbiology 11/24/19 09:08 Blood Culture - Pr eliminary Blood SPECIMEN [facility] JARED 11/24/19 09:20 Blood Culture - Pr eliminary Blood SPECIMEN [facility] JARED Other Data: Other data: cxr mild rt infiltrate renal us- normal A&P Additional A&P Information 74 yr old man h/o CAD, COPD, obesity. Pt w/ h/o ANCA vasculitis since 2016- Treated by Dr. Luevano since 2016- rx 2 x w/ steroids and cytoxan. Pt recently flared again based on ANCA level and cr going from 1.9- 2.9 and he was given rituxan. Pt now w/ 7-10 days of weakness, lethargy, cough, progressive SOB. pt was given an abx from his PMD- [facility] ED and transferred here for progressive renal failure. 1. YIMI- D dx is prerenal vs ATN vs ANCA flare -normal renal us - u/a w/ 1+ prot, 3+ blood, 15-25 RBC, 3+ bacteria - check anca, anti gbm, repeat chemistries -cont ivf -check repeat chemistries and CPK -monitor uop- elizabeth placed in ER w/ over 500 ml uop -if renal fxn does not improve, may need plasmapheresis or repeat renal bx -based on todays chemistries, will discuss w/ Dr. Kauffman the steroid dose 2. hyponatremia- likely prerenal or from stopping steroids and adrenal insufficiency or from pulm process -monitor repeat chemistries -check tsh 3. mild AGMA -likely from renal failure. 4. she is alkalotic w/ a primary resp alkalosis and a secondary met acidosis 5. anemia 6. thrombocytopenia- can be from infection or from rituxan note WBC is relatively low- can be from rituxan 7. given above and SOB_ ask pulmonary to see pt to see if they feel he is having pulmonary ANCA vasculitis and would benefit from plasmapheresis. Consult Attestations Medical Necessity Statement: YIMI Time Spent in Patient Care: Greater than 35 minutes (>than 50% of time spent in counselling and/or direct pt care on unit) . Critical Care Time: Critical Care Time (min): 55 Coding Level of Care Code Acute Hot Stone Setter for Nury Linares
[2019-11-24] MEDS: latanoprost 0.005% Op Soln 2.5 mL Btl 1 DROP OPHTHALMIC ×2 (14:08→18:59)
[2019-11-24] MEDS: isosorbide mononitrate ER 30 mg Tablet 15 MG PO (14:09)
[2019-11-24] MEDS: brimonidine 0.2% Op Soln 5 mL Btl 1 DROP EYE-BOTH ×2 (14:09→18:59)
[2019-11-24] MEDS: metOLazone 5 MG Tablet PO (14:10)
[2019-11-24] MEDS: midodrine 5 mg TABLET PO (14:10)
[2019-11-24] MEDS: guaiFENesin 600 mg Tablet PO ×2 (14:10→18:58)
[2019-11-24] MEDS: carBAMazepine 200 mg Tablet PO (14:11)
[2019-11-24] MEDS: calcitriol 0.25 mcg Capsule PO ×2 (14:11→18:58)
[2019-11-24] MEDS: tamsulosin 0.4 mg Capsule PO (14:11)
[2019-11-24 14:52] LABS: Influenza A by IFA Negative (Negative); Influenza B by IFA Negative (Negative)
--- NOTE | 2019-11-24 14:56 | ECG_ITS ---
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 Measurements Intervals [place] Rate: 73 P: AL: -1 QRS: 42 QRSD: 97 T: 50 QT: 364 QTc: 401 Interpretive Statements SUPRAVENTRICULAR RHYTHM ATYPICAL ECG Compared to ECG 11/24/2019 11:38:21 Supraventricular rhythm now present Sinus rhythm no longer present Electronically Signed On 11-24-2019 17:47:26 CDT by Alexander Ramirez M.D. [id number]
[2019-11-24] MEDS: sodium chloride 0.9% 1,000 ML 100 ML IV (14:59)
[2019-11-24 15:22] LABS: Alanine Aminotransferase 99 U/L (0-41); Albumin Level 3.1 g/dL (3.5-5.2); Alkaline Phosphatase 48 IU/L (40-130); Anion Gap 21.1 (5-19); Aspartate Amino Transferase 250 U/L (0-40); Calcium 8.2 mg/dL (8.5-10.5); Carbon Dioxide 20 mmol/L (22-29); Chloride 89 mmol/L (98-107); Globulin 2.1 g/dL (1.3-4.6); Glucose 125 mg/dL (65-115); Magnesium 2.1 mg/dL (1.7-2.3); Osmolality Calculated 264 mOsm/kg (285-295); Potassium 4.1 mmol/L (3.5-5.1); Sodium 126 mmol/L (136-145); Total Bilirubin 0.5 mg/dL (0.15-1.2); Total Protein 5.2 g/dL (6.6-8.7)
[2019-11-24 15:23] LABS: Troponin 5 6HR 98.48 ng/L (0-15); Troponin 5 6HR Delta 3.48 ng/L (0-12)
[2019-11-24 15:47] LABS: Blood Urea Nitrogen 83 mg/dL (8-23); Creatine Phosphokinase 2927 U/L (39-308)
[2019-11-24] MEDS: predniSONE 20 mg Tablet 60 MG PO (16:40)
[2019-11-24 18:17] LABS: Hepatitis C Virus Antibody Non-Reactive (Nonreactive)
[2019-11-24] MEDS: sulfamethoxazole-trimeth DS 160-800 mg Tablet 1 TAB PO (18:36)
[2019-11-24] MEDS: levofloxacin-dextrose 5 % 750 MG/150 ML PREMIX 100 MG IV (18:36)
[2019-11-24 19:11] LABS: Glucose Point of Care 132 mg/dL (70-110)
--- NOTE | 2019-11-24 19:41 | P.CONIM_ITS ---
Providers/Reason For Consult Consulting Physican/Specialty*: Pulmonary critical care medicine Reason for Consult*: Critically ill patient with multiorgan dysfunction with known and associated vasculitis. Attending Physician: Louann Kauffman DO History of Present Illness History of Present Illness Jeff Pereyra is a 74 year old male with a complicated medical history. I had evaluated the patient this evening and most of the information was obtained from review of the medical record. The patient appears to be mildly confused althoug h he is able to provide with some history. Patient tells me he does not have any history of cardiac disease except heart failure however based on the medical record it appears that the patient had co ronary artery disease requiring stent in the past. He was diagnosed with an associated vasculitis in 2016. Initially he received steroid and cyclophosphamide. His disease relapsed in 2018 and currently he has been receiving rituximab. His last dose of rituximab was in September. The patient tells me that he has been doing well about a week ago. Then the patient started having nonproductive cough which over the past week has gotten worse. The patient presented to the ED at [facility] today and was transferred to [facility] with acute on chronic kidney disease. However, the patient's story is more complicated than that. The patient has developed a thrombocytopenia, anemia, elevated d-dimer and CRP, hyponatremia, anion gap metabolic acidosis, elevated liver enzymes, elevated creatinine kinase, and ferritin level greater than 16,000 and a procalcitonin level of 34.14. I had performed a bedside ultrasound and it appears the patient has hepatomegaly and possibly mild splenomegaly. Patient was also hypotensive and received 2-1/2 L of IV fluid and likely to require low-dose pressors. The bedside ultrasound also revealed nondilated inferior vena cava. The patient is currently broadly covered with antibiotics including levofloxacin. The patient has 3+ blood in the urine with 15-25 RBCs, no visible WBCs. No report of RBC casts. Bedside echocardiogram revealed heavily calcified aortic valve. The windows were of limited quality because of the patient's body position. The left ventricular ejection fraction appeared to be 40-50%. Based on the medical record, it appears that the patient was on Bactrim prophylaxis for PCP pneumonia. His chest x-ray is essentially clear there is no evidence of any lung infiltrate. Review of Systems Narrative: Please see the HPI. The review of system is somewhat limited because of the patient's mental status. Meds/Allergies Home Medications and Allergies Home Medications Medication Instructions Recorded Confirmed Last Taken Type aspirin 81 mg PO DAILY 11/24/19 11/24/19 Unknown History atorvastatin 10 mg PO DAILY 11/24/19 11/24/19 Unknown History azithromycin See Rx Instructions .ROUTE .COMPLEX 11/24/19 11/24/19 Unknown History brimonidine 1 drp OPHTHALMIC (EYE) BID 11/24/19 11/24/19 Unknown History bumetanide 2 mg PO DAILY 11/24/19 11/24/19 Unknown History calcitriol 0.25 mcg PO BID 11/24/19 11/24/19 Unknown History carbamazepine 200 mg PO DAILY 11/24/19 11/24/19 Unknown History dabigatran etexilate [Pradaxa] 75 mg PO DAILY 11/24/19 11/24/19 Unknown History guaifenesin [Mucinex] 600 mg PO BID 11/24/19 11/24/19 Unknown History insulin aspart U-100 [Novolog See Rx Instructions .ROUTE .COMPLEX 11/24/19 11/24/19 Unknown History Flexpen U-100 Insulin] isosorbide mononitrate 30 mg PO DAILY 11/24/19 11/24/19 Unknown History latanoprost 1 drp OPHTHALMIC (EYE) BID 11/24/19 11/24/19 Unknown History metolazone 5 mg PO DAILY 11/24/19 11/24/19 Unknown History midodrine 5 mg PO Q8H 11/24/19 11/24/19 Unknown History potassium chloride 10 meq PO DAILY 11/24/19 11/24/19 Unknown History prednisone See Rx Instructions .ROUTE .COMPLEX 11/24/19 11/24/19 Unknown History sulfamethoxazole-trimethoprim See Rx Instructions .ROUTE .COMPLEX 11/24/19 11/24/19 Unknown History tamsulosin 0.4 mg PO DAILY 11/24/19 11/24/19 Unknown History Allergies Allergy/AdvReac Type Severity Reaction Status Date / Time Penicillins Allergy Unknown Verified 11/24/19 09:04 Current Medications Current Medications Generic Name Dose Route Start Last Admin Trade Name Freq PRN Reason Stop Dose Admin Brimonidine Tartrate 1 drop 11/24/19 12:00 11/24/19 18:59 Alphagan EYE-BOTH 1 drop BID RYANNE Administration Calcitriol 0.25 mcg 11/24/19 12:00 11/24/19 18:58 Rocaltrol PO 0.25 mcg BID RYANNE Administration Carbamazepine 200 mg 11/24/19 12:00 11/24/19 14:11 Tegretol PO 200 mg DAILY RYANNE Administration Guaifenesin 600 mg 11/24/19 12:00 11/24/19 18:58 Mucinex PO 600 mg BID RYANNE Administration Sodium Chloride 1,000 mls @ 100 mls/hr 11/24/19 14:31 11/24/19 14:59 Sodium Chloride 0.9% IV 100 mls/hr .Q10H RYANNE Administration Imipenem/Cilastatin Sodium 250 100 mls @ 200 mls/hr 11/24/19 16:30 11/24/19 16:40 mg/ Sodium Chloride IV 200 mls/hr Q12H RYANNE Administration Protocol Vancomycin HCl 1,250 mg/ 250 mls @ 166.667 mls/hr 11/24/19 18:00 11/24/19 18:58 Sodium Chloride IV 166.7 mls/hr Q48H RYANNE Administration Protocol Insulin Aspart 0 unit 11/24/19 12:00 11/24/19 19:09 Novolog SUBCUT Not Given TIDWM RYANNE Protocol Latanoprost 1 drop 11/24/19 12:00 11/24/19 18:59 Xalatan OPHTHALMIC 1 drop BID RYANNE Administration Metolazone 5 mg 11/24/19 09:00 11/24/19 14:10 Zaroxolyn PO 5 mg DAILY RYANNE Administration Prednisone 60 mg 11/24/19 16:00 11/24/19 16:40 Prednisone PO 11/26/19 09:01 60 mg DAILY RYANNE Administration Tamsulosin HCl 0.4 mg 11/24/19 12:00 11/24/19 14:11 Flomax PO 0.4 mg DAILY RYANNE Administration PFSH Acute PFSH: Medical History CAD (coronary artery disease) Chronic anticoagulation Chronic kidney disease Congestive heart failure COPD (chronic obstructive pulmonary disease) Diabetes mellitus type 2, insulin dependent Glaucoma History of DVT (deep vein thrombosis) Pulmonary hypertension Secondary hyperparathyroidism (of renal origin) Vasculitis ANCA+ vasculitis Surgical History History of arthroscopy of left knee History of arthroscopy of right knee History of cataract surgery History of detached retina repair History of ear surgery History of heart artery stent 02/02/15 NAT RCA, LVEF at that time 65% Status post biopsy of kidney Social History Smoking and tobacco status: never smoked Alcohol intake: never Substance/Drug Use: never Marital status: Vitals/I&O/Wt Last Vital Signs Temp 99.1 F 11/24/19 17:00 Pulse 76 11/24/19 19:00 Resp 23 H 11/24/19 19:00 BP 78/46 11/24/19 19:00 Pulse Ox 95 11/24/19 19:00 11/24/19 11/24/19 11/24/19 06:59 14:59 22:59 Intake Total 1000 / 1000 300 / 1300 Balance 1000 / 1000 300 / 1300 Weight last 48 hrs Weight 250 lb Physical Exam Narrative: EXAM NARRATIVE: General: Patient is somewhat confused, easily arousable answer questions but not able to provide a detailed history. Neck: No JVD, no cervical or supraclavicular lymphadenopathy. Respiratory: Bilateral clear to auscultation both anterior and posteriorly, no crackles wheezing or rhonchi Cardiovascular: Regular rate and rhythm, S1-S2 present, no murmur, bilateral peripheral edema. Abdomen: Soft, nontender, distended from obesity, positive bowel sound Musculoskeletal: No obvious joint deformity Skin: No rash Neuro: No gross motor deficit. Urinary Catheter Management^: Edwards: Cath Placed During This Visit: yes Urinary Catheter Date of Insertion: 11/24/19 Urinary Catheter Time of Insertion: 09:55 Data Micro: Micro: Microbiology 11/24/19 09:08 Blood Culture - Pr eliminary Blood SPECIMEN [facility] 11/24/19 09:20 Blood Culture - Pr eliminary Blood SPECIMEN [facility] Other Data: Other data: I have reviewed the patient's laboratory, microbiologic and radiologic data. His blood cultures are negative so far. Please see the HPI for detail description A&P Assessment and plan (1) Septic shock: The patient is a fairly complicated patient. The patient is currently borderline hypotensive and likely to require pressor support. Previously he received 2.5 L of IV fluid in the ED. For the time being, will be treating the patient as septic shock. I do not have any definitive source of infection. There is no lung infiltrate on the chest x- ray. The UA is not consistent with urinary tract infection. There is no abdominal symptoms which could be responsible. The patient is covered with broad-spectrum antibiotic. The concern I have is whether the patient is suffering from hemophagocytic lymphohistiocytosis. The patient is on rituximab and had received Cytoxan in the past which are known risk factors for developing HL H. His ferritin level is about 17,000, he has thrombocytopenia as well as anemia. On bedside ultrasound he has evidence of hepatosplenomegaly. He also has elevated liver enzymes, altered mental status which could all be a manifestation of HL H. We are going to repeat a ferritin level in the morning. I am going to be sending natural killer cell activity, soluble interleukin-2 receptor level, no work-up for viral diseases including respiratory viral panel, EBV, cytomegalovirus. The patient complains of nonproductive cough which started about a week ago I wonder whether that was the precipitating event. I would recommend not giving bolus IV fluids with a known history of heart failure. The patient can receive pressor support without further complication. The patient was also on midodrine at home. I will start the midodrine as well. Status: Acute (2) Hyponatremia: The hyponatremia is likely hypovolemic hyponatremia. The patient was not eating or drinking well for about a week. His IVC diameter is not dilated. We will hold off diuretic for the time being. Hyponatremia is likely to get better in the recent future. Status: Acute (3) Acute kidney injury: The patient has prerenal YIMI on CKD. The patient has received IV fluid and will be very conservative about aggressive IV fluid hydration given the heart failure. Status: Acute (4) Congestive heart failure: We will get an echocardiogram tomorrow Status: Acute (5) Vasculitis: Patient has ANCA associated vasculitis with relapse and currently on rituximab. Although this could be an exacerbation of the vasculitis I do not have any definitive proof of that. There is no significant RBC cast reported on the urine analysis however I am not sure whether a microscopy was performed. Vasculitis can affect multiple organ system which seems to be the case in this patient. Thank you for the consultation! 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
--- NOTE | 2019-11-24 20:16 | XR_ITS ---
WS: [id number] CHEST XRAY TECHNIQUE: Portable chest. CLINICAL INFORMATION: dyspnea/cough COMPARISON: November 24, 2019 FINDINGS: Heart: Normal cardiac silhouette. Lungs: Trace pleural fluid/pleural thickening. No acute pulmonary infiltrates. Moderate chronic emphy sematous changes. Bones: Normal visualized bony structures. XR/XR chest 1V portable [id number] IMPRESSION: No acute chest findings
[2019-11-24 20:33] LABS: Hematocrit 29.5 % (42.0-52.0); Hemoglobin 9.7 g/dL (11.7-16.6); Lymphocytes # 0.2 10^3/uL (0.8-4.8); Lymphocytes % 4.8 %; Mean Corpuscular HGB Conc 32.9 g/dL (30.0-36.0); Mean Corpuscular Hemoglobin 30.7 pg (28.0-34.0); Mean Corpuscular Volume 93.4 fL (80-94); Mean Platelet Volume 13.3 fL (7.4-10.4); Monocytes # 0.1 10^3/uL (0.2-0.9); Monocytes % 3.5 %; Neutrophils # 2.8 10^3/uL (1.8-7.7); Neutrophils % 91.1 %; Nucleated Red Blood Cells % 0 %; Platelet Count 48 10^3/cmm (130-400); Red Blood Count 3.16 10^6/uL (4.1-5.3); Red Cell Distribution Width 15.8 % (12.1-15.1); White Blood Count 3.1 10^3/uL (4.0-10.0)
[2019-11-24 20:54] LABS: Immunoglobulin IGA 63 mg/dL (70-400); Immunoglobulin IGG 350 mg/dL (700-1600); Lactate Dehydrogenase 836 U/L (135-225)
[2019-11-24] MEDS: midodrine 5 mg TABLET 10 MG PO (21:19)
[2019-11-24 21:30] LABS: Glucose Point of Care 169 mg/dL (70-110)
[2019-11-24 21:54] LABS: Slide Review Slide Review Perform
[2019-11-24 22:45] LABS: Immunoglobulin IGM < 25 mg/dL (40-230)
[2019-11-24 23:34] LABS: Creatine Phosphokinase 3007 U/L (39-308)
[2019-11-25] VITALS (28 sets, daily range): BP systolic 89–129; BP diastolic 43–100; PULSE 57–72; RESP 19–31; TEMP 36.8–38.5; O2SAT 92–98
[2019-11-25 00:13] LABS: CKMB 10.1 ng/mL (0-10.4); CKMB Relative Index 0.3 % (0.0-5.3)
[2019-11-25 05:13] LABS: Hematocrit 29.4 % (42.0-52.0); Mean Corpuscular Hemoglobin 31.2 pg (28.0-34.0); Mean Corpuscular Volume 91.6 fL (80-94); Mean Platelet Volume 13.2 fL (7.4-10.4); Nucleated Red Blood Cells % 0 %; Platelet Count 57 10^3/cmm (130-400); Red Blood Count 3.21 10^6/uL (4.1-5.3); Red Cell Distribution Width 15.8 % (12.1-15.1); White Blood Count 3.7 10^3/uL (4.0-10.0)
[2019-11-25 05:40] LABS: Anion Gap 24.3 (5-19); Blood Urea Nitrogen 78 mg/dL (8-23); Carbon Dioxide 18 mmol/L (22-29); Chloride 88 mmol/L (98-107); Potassium 4.3 mmol/L (3.5-5.1); Sodium 126 mmol/L (136-145)
[2019-11-25 05:41] LABS: Alanine Aminotransferase 121 U/L (0-41); Albumin Level 2.9 g/dL (3.5-5.2); Alkaline Phosphatase 49 IU/L (40-130); Aspartate Amino Transferase 350 U/L (0-40); Calcium 7.8 mg/dL (8.5-10.5); Globulin 2.2 g/dL (1.3-4.6); Glucose 154 mg/dL (65-115); Iron 124 ug/dL (59-158); Magnesium 2.3 mg/dL (1.7-2.3); Osmolality Calculated 265 mOsm/kg (285-295); Percent Saturation 56.3 % (20-50); Phosphorus 5.5 mg/dL (2.5-4.5); Total Bilirubin 0.5 mg/dL (0.15-1.2); Total Iron Binding Capacity 220 mcg/dl; Total Protein 5.1 g/dL (6.6-8.7); Unsaturated Iron Binding 96 ug/dL (112-347)
[2019-11-25 06:10] LABS: Calcium 7.6 mg/dL (8.5-10.5); Parathyroid Hormone 50.8 pg/mL (15-65)
[2019-11-25] MEDS: midodrine 5 mg TABLET 10 MG PO ×2 (06:12→16:07)
[2019-11-25 06:41] LABS: Slide Review Slide Review Perform
[2019-11-25 06:44] LABS: Band Neutrophils Absolute 1.4 10^3/cmm (0.0-1.2); Lymphocytes 3 %; Lymphocytes Absolute 0.1 10^3/cmm (1.2-3.4); Monocytes Absolute 0.1 10^3/cmm (0.1-0.6); Segmented Neutrophils 54 %; Total Cells Counted 100 (0-100)
[2019-11-25 06:45] LABS: Absolute Neutrophil 3.4 10^3/cmm (1.4-6.5); Platelet Estimate Decreased (Normal)
[2019-11-25 07:56] LABS: Glucose Point of Care 165 mg/dL (70-110)
[2019-11-25] MEDS: latanoprost 0.005% Op Soln 2.5 mL Btl 1 DROP OPHTHALMIC ×2 (08:33→18:07)
[2019-11-25] MEDS: brimonidine 0.2% Op Soln 5 mL Btl 1 DROP EYE-BOTH ×2 (08:34→18:06)
[2019-11-25] MEDS: predniSONE 20 mg Tablet 60 MG PO (08:35)
[2019-11-25] MEDS: potassium chloride ER 10 mEq Tablet PO (08:35)
[2019-11-25] MEDS: tamsulosin 0.4 mg Capsule PO (08:36)
[2019-11-25] MEDS: calcitriol 0.25 mcg Capsule PO ×2 (08:36→18:07)
[2019-11-25] MEDS: aspirin 81 mg Chew Tablet PO (08:36)
[2019-11-25] MEDS: guaiFENesin 600 mg Tablet PO ×2 (08:36→18:07)
[2019-11-25] MEDS: carBAMazepine 200 mg Tablet PO (09:37)
--- NOTE | 2019-11-25 10:40 | PM.PN ---
Subjective Subjective: Interval history: A little more lucid today than yesterday with waxing and waning delerium. Eating and drinking comfortably, no other overt uremic Sx. No SOB, some mild LE edema. Passing urine. Hemodynamics more robust today. Medications: Reviewed: Yes Vitals/I&O/Wt Last Vital Signs Temp 98.3 F 11/25/19 09:00 Pulse 63 11/25/19 10:37 Resp 22 H 11/25/19 09:00 BP 129/60 11/25/19 09:00 Pulse Ox 97 11/25/19 10:37 11/24/19 11/25/19 11/25/19 22:59 06:59 14:59 Intake Total 610 / 1610 300 / 1910 Output Total 550 / 550 500 / 1050 350 / 350 Balance 60 / 1060 -200 / 860 -350 / -350 Weight last 48 hrs Weight 113.398 kg Physical Exam Narrative: EXAM NARRATIVE: Exam performed with assitance of RN via telemed Lungs are clear, heart sounds ok with no murmurs, Soft belly with quiet BS, mild LE edema Urinary Catheter Management^: Edwards: Cath Placed During This Visit: yes Reason for Continuing Indwelling Catheter: Accurate Measurement of Urinary Output in Critically Ill Patients Urinary Catheter Date of Insertion: 11/24/19 Urinary Catheter Time of Insertion: 09:55 Data : 11/25/19 04:25 11/25/19 04:25 Micro: Microbiology 11/24/19 09:20 Blood Culture - Preliminary Blood NEGATIVE TO DATE 11/24/19 09:08 Blood Culture - Preliminary Blood NEGATIVE TO DATE 11/24/19 17:15 Legionella Urinary Antigen - Final Urine Catheterized A&P Additional A&P Information 1. YIMI on CKD - creatinine remains stable since yesterday - diff includes ATN, on going renal hypoperfusion, recurrence of ANCA GN, de ayan GN ie TMA etc - really he needs a renal biopsy for a definitive diagnosis, however, thrombocytopenia and ASA exposure will make this decision more complicated - ivf and diruetics being held at this time - on 60mg daily of Pred - GN serology sent and pending - no acute indication for dialysis at this time - avoid the usuals 2. HypoNa - in the setting of YIMI and isosthenuria (Sp Gr 1.01; typical for YIMI), no conclusions pertaining to ADH pathophysiological etiology can be drawn ie, CCD and V2-rec damaged - non critical and stable, monitor for now 3. Hemodynamics soft but stable, not on pressors 4. 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 Sepsis Work up ongoing, culture data noted Imipenem, Levaquin and Vanco 6. 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
[2019-11-25] MEDS: dexamethasone 10 mg/mL INJ IVP (11:23)
[2019-11-25] MEDS: acetaminophen 325 mg Tablet 650 MG PO (12:43)
[2019-11-25 12:45] LABS: Coronavirus Lab Test PTC Negative
--- NOTE | 2019-11-25 13:27 | PC.NURSE ---
pt resting comfortably on his right side with pillow under back to keep pressure off his bottom.
--- NOTE | 2019-11-25 13:59 | PC.NURSE ---
tranfer line called for [place] tranfer with negative covid result.
--- NOTE | 2019-11-25 14:36 | P.TS_ITS ---
Transfer Summary Providers Date of Admission: 11/24/19 11:36 Date of Discharge: 11/25/19 Attending Provider at Admission: Louann Kauffman DO Attending Provider at Transfer: Louann Kauffman DO Consults: Dr. Jones pulmonology, Dr. Anlgin, tele-nephrology Anticipated Date of Transfer: Anticipated date of transfer: 11/25/19 Receiving Facility & Provider: Receiving Provider: Dr. Cruz Receiving facility: [place], [place] Diagnoses at Discharge Discharge Diagnosis (1) Hyponatremia: Status: Acute (2) Acute kidney injury: Status: Acute (3) Congestive heart failure: Status: Acute (4) Vasculitis: Status: Acute Problem details: ANCA+ vasculitis. Followed by Dr. Luevano at [facility] Reason for Visit Reason for Visit: WEAKNESS Hospital Course Hospital Course: Patient was seen and evaluated at an outside emergency department and sent to our facility ER. He was noted to have acute on chronic kidney injury. On arrival patient was noted to have severe sepsis noted to be hypotensive and tachycardic and required IV fluid resuscitation. He was then noted to have a history of ANCA vasculitis and chronic kidney disease followed in [place]. Patient has been on Rituxan infusions as well as chronic steroids therefore was started on broad-spectrum antibiotics due to concern for febrile illness with sepsis. Patient was admitted to the ICU for close monitoring. Nephrology, via tele-nephrology services were consulted and pulmonology was consulted. Patient had reported a cough over the past 1 week, had been tested for COVID-19 last week and returned negative, he was tested for COVID-19 during this admission and returned negative. Patient was continued on broad-spectrum antibiotics due to his immunocompromise state with Primaxin, Levaquin, vancomycin and Bactrim. Blood pressures remained low but stable, patient was continued on his [place] patient continued to have intermittent fever with T-max of 101.3 ?F. He was noted to have anemia and t hrombocytopenia with an elevated d-dimer and a history of DVT, therefore VQ scan was ordered, unable to perform CT angios of the chest due to his worsening renal function, this returned with low probability of PE. 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 Discussed with provider at [facility], Dr. Cruz, patient was accepted in transfer. Discussed with patient's on date of transfer and made her aware, she verbalized understanding and agreed with plan. Physical Exam Const: COMMON NORMALS: patient oriented x3 and alert GENERAL APPEARANCE: cooperative ORIENTATION/CONSCIOUSNESS: Yes awake, Yes oriented to person, Yes oriented to place and Yes oriented to time HENMT: COMMON NORMALS: normocephalic and atraumatic HEAD & SCALP: no rmocephalic and atraumatic Eye: COMMON NORMALS: Equal, round and reactive pupils present PUPIL: Yes Equal, round and reactive pupils present Neck/C-Spine: COMMON NORMALS: supple GENERAL: Yes normal visual inspection Resp: COMMON NORMALS: normal respiratory effort and clear to auscultation bilaterally EFFORT & INSPECTION: Yes able to speak in complete sentences AUSCULTATION: clear to auscultation bilaterally, no rhonchi and no wheezes Cardio: COMMON NORMALS: regular rate, regular rhythm and No murmurs present (Cardio) RATE: regular rate RHYTHM: regular rhythm GI: COMMON NORMALS: Soft to palpation and non-tender INSPECTION: No abdominal distension AUSCULTATION: Yes normoactive bowel sounds PALPATION: Yes Soft to palpation : OTHER: Edwards catheter in place with dark-colored urine and sediment Extremity: COMMON NORMALS: no calf tenderness OTHER: 1+ pitting edema in the lower extremities bilaterally Neuro: COMMON NORMALS: patient oriented x3, CN's II-XII intact bilaterally, moves all extremities and no focal motor deficits SENSORIUM/ORIENTATION: Yes alert, Yes oriented to person, Yes oriented to place and Yes oriented to time SPEECH: speech normal Psych: COMMON NORMALS: mental status grossly normal and cooperative Urinary Catheter Management^: Edwards: Cath Placed During This Visit: yes Reason for Continuing Indwelling Catheter: Accurate Measurement of Urinary Output in Critically Ill Patients Urinary Catheter Date of Insertion: 11/24/19 Urinary Catheter Time of Insertion: 09:55 TS Data Data Completed and Pending: Completed Studies During Hospitalization Category Date Time Status XR chest 1V kyle ble [id number] Stat Exams 11/24/19 08:55 Completed XR chest 1V kyle ble [id number] Stat Exams 11/24/19 20:16 Completed NM pul perfusion [id number] Stat Nuc Med 11/24/19 09:25 [place] [id number] Urgent Ultrasound 11/24/19 09:25 Completed US renal BI with bladder Urgent Ultrasound 11/24/19 09:07 Completed Pending at discharge Category Date Time Status CT chest wo con 7 1250 Routine Cat Scan 11/25/19 16:21 Ordered JAIME Screen w/ Ref brady Routine Lab 11/24/19 15:01 Received Anti Double Stran ded DNA AB Routine Lab 11/24/19 15:01 Received Anti-Neutrophil C utoplasmic AB Rout ine Lab 11/24/19 15:01 Received Blood Culture Sta t Lab 11/24/19 09:08 Results CYTOMEGALOVIRUS D NA, QN, REAL Stat Lab 11/24/19 20:05 Received Complete Blood Co unt w/Auto AM LABS Lab 11/26/19 04:00 Ordered Complete Blood Co unt w/Auto AM LABS Lab 11/27/19 04:00 Ordered Comprehensive Met abolic Panel AM LA BS Lab 11/26/19 04:00 Ordered Comprehensive Met abolic Panel AM LA BS Lab 11/27/19 04:00 Ordered EBV IGG & IGM Sta t Lab 11/24/19 20:05 Received HIV RNA (PCR) Artie nt Stat Lab 11/24/19 20:05 Received Magnesium AM LABS Lab 11/26/19 04:00 Ordered Magnesium AM LABS Lab 11/27/19 04:00 Ordered Miscellaneous Alee t Routine Lab 11/24/19 19:26 Received Miscellaneous Alee t Routine Lab 11/24/19 20:05 Received Miscellaneous Alee t Routine Lab 11/24/19 20:05 Received Miscellaneous Alee t Routine Lab 11/24/19 20:05 Received Phosphorus AM LAB S Lab 11/26/19 04:00 Ordered Phosphorus AM LAB S Lab 11/27/19 04:00 Ordered Respiratory Viral Panel PCR Stat Lab 11/24/19 19:33 Ordered Sputum Culture an d Gram Stain Stat Lab 11/24/19 09:50 Uncollected Urine Culture Sta t Lab 11/24/19 09:55 Received CV echo complete* [id number] Routine Ultrasound 11/25/19 07:00 Ordered Labs from last 24 hours 11/25/19 11/25/19 11/25/19 07:48 04:25 04:25 WBC RBC Hgb Hct MCV MCH MCHC RDW Plt Count MPV Neut % (Auto) Lymph % (Auto) [place] % (Auto) Eos % (Auto) Baso % (Auto) Neut # (Auto) Lymph # (Auto) [place] # (Auto) Eos # (Auto) Baso # (Auto) Nucleated RBC % (a uto) Total Counted Atypical Lymphs % Absolute Neutrophi ls Segmented Neutroph ils Abs Segm Neuts (Ma n) Band Neutrophils Abs Band Neuts (Ma n) Absolute Lymphocyt es Lymphocytes (Manua l) Monocytes (Manual) Absolute Monocytes Nucleated RBCs # Platelet Estimate Sodium 126 L Potassium 4.3 Chloride 88 L Carbon Dioxide 18 L Anion Gap 24.3 H BUN 78 H Creatinine 5.3 H Glucose 154 H POC Glucose 165 Calculated Osmolal ity 265 L Calcium 7.8 L Phosphorus 5.5 H Magnesium 2.3 Iron 124 TIBC 220 % Saturation 56.3 H Unsat Iron Binding 96 L Ferritin > 24254 H Total Bilirubin 0.5 AST 350 H ALT 121 H Alkaline Phosphata se 49 Lactate Dehydrogen ase Creatine Kinase CK-MB (CK-2) CK-MB (CK-2) Rel I ndex Troponin I 6 Hour Troponin I Hi Sens Del Total Protein 5.1 L Albumin 2.9 L Globulin 2.2 PTH Intact 50.8 Calcium (PTH Intac t) 7.6 L IgG IgA IgM Nasal/Oral COVID-1 9 PCR Hepatitis C Antibo dy Influenza Type A A g Influenza Type B A g 11/25/19 11/24/19 11/24/19 04:25 21:25 20:05 WBC 3.7 L RBC 3.21 L Hgb 10.0 L Hct 29.4 L MCV 91.6 MCH 31.2 MCHC 34.0 RDW 15.8 H Plt Count 57 L MPV 13.2 H Neut % (Auto) Lymph % (Auto) Not Reportable [place] % (Auto) Not Reportable Eos % (Auto) Baso % (Auto) Neut # (Auto) Lymph # (Auto) Not Reportable [place] # (Auto) Not Reportable Eos # (Auto) Baso # (Auto) Nucleated RBC % (a uto) 0 Total Counted 100 Atypical Lymphs % 1.0 Absolute Neutrophi ls 3.4 Segmented Neutroph ils 54 Abs Segm Neuts (Ma n) 2.0 Band Neutrophils 38.0 Abs Band Neuts (Ma n) 1.4 H Absolute Lymphocyt es 0.1 L Lymphocytes (Manua l) 3 Monocytes (Manual) 4.0 Absolute Monocytes 0.1 Nucleated RBCs # 0.0 Platelet Estimate Decreased Sodium Potassium Chloride Carbon Dioxide Anion Gap BUN Creatinine Glucose POC Glucose 169 Calculated Osmolal ity Calcium Phosphorus Magnesium Iron TIBC % Saturation Unsat Iron Binding Ferritin Total Bilirubin AST ALT Alkaline Phosphata se Lactate Dehydrogen ase 836 H Creatine Kinase CK-MB (CK-2) CK-MB (CK-2) Rel I ndex Troponin I 6 Hour Troponin I Hi Sens Del Total Protein Albumin Globulin PTH Intact Calcium (PTH Intac t) IgG 350 L IgA 63 L IgM < 25 L Nasal/Oral COVID-1 9 PCR Hepatitis C Antibo dy Influenza Type A A g Influenza Type B A g 11/24/19 11/24/19 11/24/19 20:05 20:05 19:08 WBC 3.1 L RBC 3.16 L Hgb 9.7 L Hct 29.5 L MCV 93.4 MCH 30.7 MCHC 32.9 RDW 15.8 H Plt Count 48 L MPV 13.3 H Neut % (Auto) 91.1 Lymph % (Auto) 4.8 [place] % (Auto) 3.5 Eos % (Auto) 0.0 Baso % (Auto) 0.0 Neut # (Auto) 2.8 Lymph # (Auto) 0.2 L [place] # (Auto) 0.1 L Eos # (Auto) 0.0 Baso # (Auto) 0.0 Nucleated RBC % (a uto) 0 Total Counted Atypical Lymphs % Absolute Neutrophi ls Segmented Neutroph ils Abs Segm Neuts (Ma n) Band Neutrophils Abs Band Neuts (Ma n) Absolute Lymphocyt es Lymphocytes (Manua l) Monocytes (Manual) Absolute Monocytes Nucleated RBCs # 0.0 Platelet Estimate Sodium Potassium Chloride Carbon Dioxide Anion Gap BUN Creatinine Glucose POC Glucose 132 Calculated Osmolal ity Calcium Phosphorus Magnesium Iron TIBC % Saturation Unsat Iron Binding Ferritin Total Bilirubin AST ALT Alkaline Phosphata se Lactate Dehydrogen ase Creatine Kinase 3007 H* CK-MB (CK-2) 10.1 CK-MB (CK-2) Rel I ndex 0.3 Troponin I 6 Hour Troponin I Hi Sens Del Total Protein Albumin Globulin PTH Intact Calcium (PTH Intac t) IgG IgA IgM Nasal/Oral COVID-1 9 PCR Hepatitis C Antibo dy Influenza Type A A g Influenza Type B A g 11/24/19 11/24/19 11/24/19 15:01 15:01 15:01 WBC RBC Hgb Hct MCV MCH MCHC RDW Plt Count MPV Neut % (Auto) Lymph % (Auto) [place] % (Auto) Eos % (Auto) Baso % (Auto) Neut # (Auto) Lymph # (Auto) [place] # (Auto) Eos # (Auto) Baso # (Auto) Nucleated RBC % (a uto) Total Counted Atypical Lymphs % Absolute Neutrophi ls Segmented Neutroph ils Abs Segm Neuts (Ma n) Band Neutrophils Abs Band Neuts (Ma n) Absolute Lymphocyt es Lymphocytes (Manua l) Monocytes (Manual) Absolute Monocytes Nucleated RBCs # Platelet Estimate Sodium 126 L Potassium 4.1 Chloride 89 L Carbon Dioxide 20 L Anion Gap 21.1 H BUN 83 H* Creatinine 5.2 H Glucose 125 H POC Glucose Calculated Osmolal ity 264 L Calcium 8.2 L Phosphorus 4.0 Magnesium 2.1 Iron TIBC % Saturation Unsat Iron Binding Ferritin Total Bilirubin 0.5 AST 250 H ALT 99 H Alkaline Phosphata se 48 Lactate Dehydrogen ase Creatine Kinase 2927 H* CK-MB (CK-2) CK-MB (CK-2) Rel I ndex Troponin I 6 Hour 98.48 H Troponin I Hi Sens Del 3.48 Total Protein 5.2 L Albumin 3.1 L Globulin 2.1 PTH Intact Calcium (PTH Intac t) IgG IgA IgM Nasal/Oral COVID-1 9 PCR Hepatitis C Antibo dy Non-reactive Influenza Type A A g Influenza Type B A g 11/24/19 11/24/19 11:10 10:10 WBC RBC Hgb Hct MCV MCH MCHC RDW Plt Count MPV Neut % (Auto) Lymph % (Auto) [place] % (Auto) Eos % (Auto) Baso % (Auto) Neut # (Auto) Lymph # (Auto) [place] # (Auto) Eos # (Auto) Baso # (Auto) Nucleated RBC % (a uto) Total Counted Atypical Lymphs % Absolute Neutrophi ls Segmented Neutroph ils Abs Segm Neuts (Ma n) Band Neutrophils Abs Band Neuts (Ma n) Absolute Lymphocyt es Lymphocytes (Manua l) Monocytes (Manual) Absolute Monocytes Nucleated RBCs # Platelet Estimate Sodium Potassium Chloride Carbon Dioxide Anion Gap BUN Creatinine Glucose POC Glucose Calculated Osmolal ity Calcium Phosphorus Magnesium Iron TIBC % Saturation Unsat Iron Binding Ferritin Total Bilirubin AST ALT Alkaline Phosphata se Lactate Dehydrogen ase Creatine Kinase CK-MB (CK-2) CK-MB (CK-2) Rel I ndex Troponin I 6 Hour Troponin I Hi Sens Del Total Protein Albumin Globulin PTH Intact Calcium (PTH Intac t) IgG IgA IgM Nasal/Oral COVID-1 9 PCR Negative Hepatitis C Antibo dy Influenza Type A A g Negative Influenza Type B A g Negative Vitals: Last Vital Signs Temp 101.3 F H 11/25/19 11:42 Pulse 60 11/25/19 14:00 Resp 26 H 11/25/19 14:00 BP 100/54 11/25/19 14:00 Pulse Ox 95 11/25/19 14:00 TS Medications Medications Home Medications aspirin 81 mg PO DAILY 11/24/19 [History Confirmed 11/24/19] atorvastatin 10 mg PO DAILY 11/24/19 [History Confirmed 11/24/19] azithromycin See Rx Instructions .ROUTE .COMPLEX 11/24/19 [History Confirmed 11/24/19] brimonidine 1 drp OPHTHALMIC (EYE) BID 11/24/19 [History Confirmed 11/24/19] bumetanide 2 mg PO DAILY 11/24/19 [History Confirmed 11/24/19] calcitriol 0.25 mcg PO BID 11/24/19 [History Confirmed 11/24/19] carbamazepine 200 mg PO DAILY 11/24/19 [History Confirmed 11/24/19] dabigatran etexilate [Pradaxa] 75 mg PO DAILY 11/24/19 [History Confirmed 11/24/19] guaifenesin [Mucinex] 600 mg PO BID 11/24/19 [History Confirmed 11/24/19] insulin aspart U-100 [Novolog Flexpen U-100 Insulin] See Rx Instructions .ROUTE .COMPLEX 11/24/19 [History Confirmed 11/24/19] isosorbide mononitrate 30 mg PO DAILY 11/24/19 [History Confirmed 11/24/19] latanoprost 1 drp OPHTHALMIC (EYE) BID 11/24/19 [History Confirmed 11/24/19] metolazone 5 mg PO DAILY 11/24/19 [History Confirmed 11/24/19] midodrine 5 mg PO Q8H 11/24/19 [History Confirmed 11/24/19] potassium chloride 10 meq PO DAILY 11/24/19 [History Confirmed 11/24/19] prednisone See Rx Instructions .ROUTE .COMPLEX 11/24/19 [History Confirmed 11/24/19] sulfamethoxazole-trimethoprim See Rx Instructions .ROUTE .COMPLEX 11/24/19 [His tory Confirmed 11/24/19] tamsulosin 0.4 mg PO DAILY 11/24/19 [History Confirmed 11/24/19] Active Medications Acetaminophen (Tylenol) 650 mg PO Q6H PRN PRN Reason: MILD PAIN Last Admin: 11/25/19 12:43 Dose: 650 mg Documented by: Aspirin (Aspirin Chewable) 81 mg PO DAILY [facility] Last Admin: 11/25/19 08:36 Dose: 81 mg Documented by: Brimonidine Tartrate (Alphagan) 1 drop EYE-BOTH BID [facility] Last Admin: 11/25/19 08:34 Dose: 1 drop Documented by: Calcitriol (Rocaltrol) 0.25 mcg PO BID [facility] Last Admin: 11/25/19 08:36 Dose: 0.25 mcg Documented by: Carbamazepine (Tegretol) 200 mg PO DAILY [facility] Last Admin: 11/25/19 09:37 Dose: 200 mg Documented by: Dextrose (D50w) 25 ml IVP ONCE PRN; Protocol PRN Reason: hypoglycemia protocol Dextrose (D50w) 50 ml IVP PRN PRN; Protocol PRN Reason: hypoglycemia protocol Glucagon (Glucagen) 1 mg IM ONCE PRN; Protocol PRN Reason: Adult Acute Hypoglycemia Prot. Guaifenesin (Mucinex) 600 mg PO BID [facility] Last Admin: 11/25/19 08:36 Dose: 600 mg Documented by: Dextrose (D5w) 500 mls @ 100 mls/hr IV ONCE PRN; Protocol PRN Reason: Adult Acute Hypoglycemia Prot Imipenem/Cilastatin Sodium 250 (mg/ Sodium Chloride) 100 mls @ 200 mls/hr IV Q12H [facility]; Protocol Last Admin: 11/25/19 04:32 Dose: 200 mls/hr Documented by: Levofloxacin/Dextrose (Levaquin-D5w) 500 mg in 100 mls @ 100 mls/hr IV Q48H [facility] Vancomycin HCl 1,250 mg/ (Sodium Chloride) 250 mls @ 166.667 mls/hr IV Q48H [facility]; Protocol Last Admin: 11/24/19 18:58 Dose: 166.7 mls/hr Documented by: Norepinephrine Bitartrate 4 mg (/ Dextrose) 254 mls @ 0 mls/hr IV .Q0M RYANNE; Protocol Insulin Aspart (Novolog) 0 unit SUBCUT BEDTIME [facility]; Protocol Last Admin: 11/24/19 21:29 Dose: 2 unit Documented by: Insulin Aspart (Novolog) 0 unit SUBCUT TIDWM [facility]; Protocol Last Admin: 11/25/19 12:35 Dose: 6 unit Documented by: Latanoprost (Xalatan) 1 drop OPHTHALMIC BID [facility] Last Admin: 11/25/19 08:33 Dose: 1 drop Documented by: Midodrine (Proamatine) 10 mg PO Q8H [facility] Last Admin: 11/25/19 06:12 Dose: 10 mg Documented by: Potassium Chloride (Klor-Con 10) 10 meq PO DAILY [facility] Last Admin: 11/25/19 08:35 Dose: 10 meq Documented by: Prednisone (Prednisone) 60 mg PO DAILY [facility] Stop: 11/26/19 09:01 Last Admin: 11/25/19 08:35 Dose: 60 mg Documented by: Tamsulosin HCl (Flomax) 0.4 mg PO DAILY [facility] Last Admin: 11/25/19 08:36 Dose: 0.4 mg Documented by: Discharge Plan Discharge Patient Disposition: Xfer Short-Term Hosp Condition: Stable Prescriptions: No Action latanoprost 0.005 % drops 1 drp ophthalmic (eye) BID RF: 0 bumetanide 2 mg tablet 2 mg PO DAILY RF: 0 atorvastatin 10 mg tablet 10 mg PO DAILY RF: 0 azithromycin 250 mg tablet See Rx Instructions .ROUTE .COMPLEX RF: 0 prednisone 20 mg tablet See Rx Instructions .ROUTE .COMPLEX RF: 0 isosorbide mononitrate 30 mg tablet extended release 24 hr 30 mg PO DAILY RF: 0 midodrine 5 mg tablet 5 mg PO Q8H RF: 0 metolazone 5 mg tablet 5 mg PO DAILY RF: 0 potassium chloride 10 mEq tablet extended release 10 meq PO DAILY RF: 0 sulfamethoxazole-trimethoprim 800-160 mg tablet See Rx Instructions .ROUTE .COMPLEX RF: 0 carbamazepine 200 mg tablet 200 mg PO DAILY RF: 0 tamsulosin 0.4 mg capsule 0.4 mg PO DAILY RF: 0 brimonidine 0.2 % drops 1 drp ophthalmic (eye) BID RF: 0 calcitriol 0.25 mcg capsule 0.25 mcg PO BID RF: 0 Pradaxa 75 mg capsule 75 mg PO DAILY RF: 0 Mucinex 600 mg tablet extended release 12hr 600 mg PO BID RF: 0 Novolog Flexpen U-100 Insulin 100 unit/mL (3 mL) Insulin Pen See Rx Instructions .ROUTE .COMPLEX RF: 0 aspirin 81 mg Tablet,Chewable 81 mg PO DAILY RF: 0 Discharge Orders: Transfer Out of Facility (Order); Ordered 11/25/19 Ordered By: Louann Kauffman Activity Restrictions/Additional Instructions: Transfer to 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
[2019-11-25 16:23] LABS: Glucose Point of Care 182 mg/dL (70-110)
[2019-11-25 16:48] LABS: Glucose Point of Care 276 mg/dL (70-110)
[2019-11-27 07:40] LABS: HIV RNA (CPY/ML) <1.30 NOT DETECTED (NOT DETECTED); HIV RNA LOG <20 NOT DETECTED copies/mL (NOT DETECTED)
[2019-11-29 14:00] LABS: EBV IGM TEST <36.00 U/mL; EBV Nuclear AG <18.00 U/mL
[2019-11-29 14:00] LABS: Anti-Double Strand DNA AB 1 IU/mL
[2019-11-29 14:30] LABS: Anti-Nuclear Antibody Screen NEGATIVE (NEGATIVE)
[2019-12-01 10:56] LABS: ANCA Interp P-ANCA POS (Negative)
[2019-12-03 20:10] LABS: CMV DNA By PCR <200 IU/mL; CMV DNA, QN PCR <2.30 Log IU/mL; SOURCE PLASMA
[2019-12-08 15:14] LABS: Miscellaneous Test See Scanned Lab Rpt
== END 2019-11-25 19:30 | disposition short-term general hospital (02) | DRG 871 ==
LOC: ER 10:49 → ICU 13:08
PROVIDERS: Internal Medicine Critical Care Medicine; Internal Medicine Nephrology; Admitting Provider Family Medicine; Emergency Provider Family Medicine; Visit Provider Family Medicine
DX: A41.9 Sepsis, unspecified organism (principal); R65.21 Severe sepsis with septic shock; N17.9 Acute kidney failure, unspecified; E87.1 Hypo-osmolality and hyponatremia; I77.6 Arteritis, unspecified; N18.9 Chronic kidney disease, unspecified; I25.10 Atherosclerotic heart disease of native coronary artery without angina pectoris; Z11.59 Encounter for screening for other viral diseases; Z79.82 Long term (current) use of aspirin; Z79.4 Long term (current) use of insulin; D69.6 Thrombocytopenia, unspecified; J44.9 Chronic obstructive pulmonary disease, unspecified; R33.9 Retention of urine, unspecified; I50.9 Heart failure, unspecified; E11.22 Type 2 diabetes mellitus with diabetic chronic kidney disease; I27.20 Pulmonary hypertension, unspecified; Z86.718 Personal history of other venous thrombosis and embolism; Z79.01 Long term (current) use of anticoagulants; D64.9 Anemia, unspecified; E78.5 Hyperlipidemia, unspecified
CPT/HCPCS: 12345; 36415; 36416; 36600; 51702; 71045; 76770; 76857; 78580; 80051; 80053; 81001; 82009; 82310; 82550; 82553; 82728; 82784; 82810; 82962; 83036; 83516; 83540; 83550; 83605; 83615; 83735; 83880; 83970; 83986; 84100; 84145; 84153; 84484; 85007; 85025; 85378; 85384; 86038; 86140; 86225; 86357; 86603; 86665; 86803; 87040; 87086; 87449; 87496; 87536; 87635; 87804; 88184; 88185; 88188; 93005; 93970; 96372; 99284; A9540; J0743; J1100; J1815; J1956; J3370; J7030; J7050; J7512